=== PATIENT | female | born 1955 | race Caucasian/White ===

== ENCOUNTER 2016-10-06 16:44 | Inpatient (IN) | payer OTHER, MEDICAID ==
--- NOTE | 2016-10-06 17:16 | CPEKG ---
Heart Rate: 114 RR Interval: 526 P-R Interval: 136 QRSD Interval: 84 QT Interval: 316 QTC Interval: 436 P [place]: 51 QRS [place]: -39 T Wave [place]: 16 EKG Severity - ABNORMAL ECG - EKG Impression: SINUS TACHYCARDIA EKG Impression: VENTRICULAR PREMATURE COMPLEX EKG Impression: PROBABLE INFERIOR INFARCT, AGE INDETERMINATE Electronically Signed By: Yusef Busby 06-Oct-2016 22:06:16
[2016-10-06 17:34] LABS: % IMMATURE GRANULYOCYTES 0.4 % (0.0-1.1); ABSOLUTE IMMATURE GRANULOCYTES 0.04 10^3/uL (0.00-0.10); ADD DIFF? NO; ADD MORPH? NO; ADD SCAN? NO; ATYPICAL LYMPHOCYTE FLAG 10 (0-99); FRAGMENT RBC FLAG 0 (0-99); HEMATOCRIT 48.9 % (38.0-47.0); HEMOGLOBIN 15.8 g/dL (12.6-16.3); LEFT SHIFT FLG 0 (0-99); LIPEMIA HEMOLYSIS FLAG 80 (0-99); MEAN CELL HEMOGLOBIN 27.6 pg (27.9-34.1); MEAN CELL HEMOGLOBIN CONCENTR. 32.3 g/dL (32.4-36.7); MEAN CELL VOLUME 85.3 fL (81.5-99.8); MEAN PLATELET VOLUME 9.3 fL (8.7-11.7); PLATELET CLUMPS FLAG 20 (0-99); PLATELET COUNT 272 10^3/uL (150-400); RED BLOOD CELL COUNT 5.73 10^6/uL (4.18-5.33); RED CELL DISTRIBUTION WIDTH 16.5 % (11.5-15.2)
[2016-10-06 17:43] LABS: COLOR YELLOW; LEUKOCYTE ESTERASE,URINE 3+ (NEGATIVE); NITRITE,URINE POSITIVE (NEGATIVE)
--- NOTE | 2016-10-06 17:44 | EDPHY ---
H & P Time Seen by Provider: 10/06/16 16:48 HPI/ROS: Chief complaint. Fall HPI. 61-year-old female here by EMS after apparently having a fall at home today. She has been weak the last several days. Her son saw her yesterday and she seemed to be well. Patient has chronic back pain and has had lumbar surgery and has had incontinence for 6 weeks apparently. Maybe a little bit of cough earlier this week. Unknown fever. For friend found the patient on the floor today with a big bruise on the left anterior chest. Patient denies head injury or complaint of neck pain. She was unable to get up off the floor. She has had urosepsis. He is sleepy ROS Constitutional. Possible fever and generalized weakness Eyes. no problems with vision ENT. no sore throat, no nasal drainage Cardiovascular. no chest pain Respiratory. May be cough Abdominal. no abdominal pain, no nausea/vomiting, no diarrhea . no problems urinating MS. no calf pain/swelling, no neck/back pain, no joint pain Skin. Bruise left anterior chest Lymph. no swollen glands Neuro. Cannot walk or stand. Denies headache Past Medical/Surgical History: Past medical history chronic back pain, lumbar surgery for burst fracture, colitis, hypertension, room ARC toy arthritis, cholecystectomy, UTI sepsis, PE with filter and now filter removed., hypothyroid Social History: Lives alone, nonsmoker, no alcohol, single Smoking Status: Former smoker Physical Exam: General Appearance: Alert though somewhat lethargic well-developed female vital show temp 37.2degrees, heart rate 110, blood pressure initially 138/92 Eyes: Pupils equal and round no pallor or injection. ENT, Mouth: Mucous membranes are moist. Respiratory: There are no retractions, lungs are clear to auscultation. Cardiovascular: Regular rate and rhythm. Gastrointestinal: Abdomen is soft and nontender, no masses, bowel sounds normal. Neurological: Awake and alert, sensory and motor exams grossly normal. Skin: Large bruise to the left anterior chest Musculoskeletal: Neck is supple nontender. Extremities symmetrical, full range of motion. Psychiatric: Patient is oriented X 3, there is no agitation. Constitutional: Initial Vital Signs Temperature (C) 37.2 C 10/06/16 17:17 Heart Rate 110 H 10/06/16 17:17 Respiratory Rate 24 H 10/06/16 17:17 Blood Pressure 138/92 H 10/06/16 17:17 O2 Sat (%) 98 10/06/16 17:17 O2 Delivery Mode Nasal Cannula O2 (L/minute) 3 Allergies/Adverse Reactions: Tetracyclines Allergy (Verified 12/11/15 11:00) Rash Home Medications: Medication Instructions Recorded Cholecalciferol Vit D3 [Vitamin D3 2,000 units PO DAILY 05/05/15 (*)] [place]-3 Ethyl Est-Lovaza [Lovaza 1 2 gm PO BID 05/07/15 gm (*)] Lipase/Protease/Amylase [Creon 24 3 cap PO AC 01/02/16 (*)] Teriparatide [Forteo] 20 mcg SQ DAILY@18 01/02/16 Sennosides [Senna] 8.6 mg PO BID PRN 01/11/16 Melatonin [Melatonin 3 MG (*)] 3 mg PO HS 01/17/16 Acetaminophen [Tylenol 325mg (*)] 650 mg PO Q4 PRN #0 tab 01/21/16 Furosemide [Lasix 20 MG (*)] 20 mg PO DAILY PRN #30 tab 01/27/16 Gabapentin [Neurontin 300 MG (*)] 600 mg PO TID #90 cap 01/27/16 Hydrocortisone [Cortef 10 mg (*)] 10 mg PO DAILY16 #30 tab 01/27/16 Hydrocortisone [Cortef 10 mg (*)] 15 mg PO DAILY #30 tab 01/27/16 Polyethylene Glycol 3350 [Miralax 17 gm PO DAILY #0 pkt 01/27/16 17 gm (*)] Vancomycin [Vancocin Oral Liquid] 125 mg PO BID #35 ml 01/27/16 fentaNYL [Duragesic 25 MCG Patch 25 mcg TD Q48H #15 patch 01/27/16 (*)] oxyCODONE IR [Oxycodone Ir (*)] 5 mg PO Q6H PRN #120 tab 01/28/16 Medical Decision Making - Diagnostics EKG Interpretation: EKG interpreted by me shows sinus tachycardia with normal interval. There is left axis deviation. Possible inferior ME. No significant ST elevation or depression. The rate is 114 Imaging: A chest x-ray and interpreted by me shows congestive heart failure and bibasilar atelectasis. Procedures: IV normal saline. Sepsis workup ED Course/Re-evaluation: Re-evaluation at 6:30 p.m.. Blood pressure 127/70. Heart rate was 103. She has had 2 L of fluid resuscitation. She is given Rocephin intravenously. Patient has an elevated troponin. Patient, son, and I discussed imaging lab EKG results. We discussed treatment plan including need for admission. They expressed understanding and agreement I have consulted and discussed the case with Dr. Cook, hospitalist who agrees to the admission Differential Diagnosis: I considered sepsis, pneumonia, urinary sepsis, rhabdomyolysis, pneumothorax, rib fracture, acute coronary syndrome - Data Points Laboratory Results: Laboratory Results 10/06/16 17:00 10/06/16 17:00 10/06/16 10/06/16 17:15 17:00 WBC 8.95 10^3/uL (3.80-9.50) RBC 5.73 H 10^6/uL (4.18-5.33) Hgb 15.8 g/dL (12.6-16.3) Hct 48.9 H % (38.0-47.0) MCV 85.3 fL (81.5-99.8) MCH 27.6 L pg (27.9-34.1) MCHC 32.3 L g/dL (32.4-36.7) RDW 16.5 H % (11.5-15.2) Plt Count 272 10^3/uL (150-400) MPV 9.3 fL (8.7-11.7) Neut % (Auto) 74.1 % (39.3-74.2) Lymph % (Auto) 11.1 L % (15.0-45.0) [facility] % (Auto) 13.9 H % (4.5-13.0) Eos % (Auto) 0.1 L % (0.6-7.6) Baso % (Auto) 0.4 % (0.3-1.7) Nucleat RBC Rel Count 0.0 % (0.0-0.2) Absolute Neuts (auto) 6.63 H 10^3/uL (1.70-6.50) Absolute Lymphs (auto) 0.99 L 10^3/uL (1.00-3.00) Absolute Monos (auto) 1.24 H 10^3/uL (0.30-0.80) Absolute Eos (auto) 0.01 L 10^3/uL (0.03-0.40) Absolute Basos (auto) 0.04 10^3/uL (0.02-0.10) Absolute Nucleated RBC 0.00 10^3/uL (0-0.01) Immature Gran % 0.4 % (0.0-1.1) Immature Gran # 0.04 10^3/uL (0.00-0.10) PT 12.4 SEC (12.0-15.0) INR 0.93 (0.83-1.16) APTT 25.2 SEC (23.0-38.0) VBG Lactic Acid 1.5 mmol/L (0.7-2.1) Sodium 140 mEq/L (134-144) Potassium 3.7 mEq/L (3.5-5.2) Chloride 100 mEq/L (97-110) Carbon Dioxide 27 mEq/l (22-31) Anion Gap 13 mEq/L (8-16) BUN 15 mg/dL (7-23) Creatinine 0.8 mg/dL (0.6-1.0) Estimated GFR > 60 Glucose 92 mg/dL (70-100) Calcium 8.8 mg/dL (8.5-10.4) Total Bilirubin 0.8 mg/dL (0.1-1.4) Conjugated Bilirubin 0.3 mg/dL (0.0-0.5) Unconjugated Bilirubin 0.6 mg/dL (0.0-1.1) AST 48 H IU/L (14-46) ALT 41 IU/L (9-52) Alkaline Phosphatase 252 H IU/L (38-126) Creatine Kinase 618 H IU/L (0-156) CK-MB (CK-2) Fraction 11.10 H ng/mL (0-3.19) CK-MB (CK-2) % 1.8 % (0.0-4.0) Creatine Kinase Interp NEGATIVE (NEGATIVE) Troponin I 0.094 H ng/mL (0-0.034) NT-Pro-B Natriuret Pep 2010 H pg/mL (0-125) Total Protein 7.2 g/dL (6.3-8.2) Albumin 3.7 g/dL (3.5-5.0) Urine Color YELLOW Urine Appearance MODERATELY TURBID Urine pH 6.0 (5.0-7.5) Ur Specific [place] 1.013 (1.002-1.030) Urine Protein 2+ H (NEGATIVE) Urine Ketones NEGATIVE (NEGATIVE) Urine Blood 2+ H (NEGATIVE) Urine Nitrate POSITIVE H (NEGATIVE) Urine Bilirubin NEGATIVE (NEGATIVE) Urine Urobilinogen NEGATIVE EU (0.2-1.0) Ur Leukocyte Esterase 3+ H (NEGATIVE) Urine RBC 10-15 H /hpf (0-3) Urine WBC 50-182 H /hpf (0-3) Ur Epithelial Cells TRACE /lpf (NONE-1+) Urine Bacteria TRACE H /hpf (NONE SEEN) Hyaline Casts 1-5 /lpf (0-1) Urine Mucus TRACE /lpf (NONE-1+) Urine Glucose NEGATIVE (NEGATIVE) Medications Given: Discontinued Medications Sodium Chloride (Ns) 1,000 mls @ 0 mls/hr IV ONCE ONE PRN Reason: Wide Open Stop: 10/06/16 17:55 Last Admin: 10/06/16 17:54 Dose: 1,000 mls Departure - Departure Disposition: [facility] Inpatient Acute Clinical Impression: Elevated troponin Urinary tract infection Qualifiers: Urinary tract infection type: acute cystitis Hematuria presence: without hematuria Qualifier Code: (N30.00) Acute cystitis without hematuria Condition: Fair Referrals: Edmar Ling MD [Primary Care Provider] - As per Instructions
[2016-10-06 17:54] LABS: ANION GAP 13 mEq/L (8-16); BILIRUBIN,TOTAL 0.8 mg/dL (0.1-1.4); CALCIUM 8.8 mg/dL (8.5-10.4); CARBON DIOXIDE 27 mEq/l (22-31); CHLORIDE 100 mEq/L (97-110); CREATININE 0.8 mg/dL (0.6-1.0); GLOMERULAR FILTRATION RATE > 60; GLUCOSE 92 mg/dL (70-100); POTASSIUM 3.7 mEq/L (3.5-5.2); SODIUM 140 mEq/L (134-144)
[2016-10-06] MEDS ORDERED: NS 1,000 ML IV ONE ×2 (17:54→20:14)
[2016-10-06 17:58] LABS: ALANINE AMINOTRANSFERASE 41 IU/L (9-52); ALBUMIN 3.7 g/dL (3.5-5.0); ALKALINE PHOSPHATASE 252 IU/L (38-126); ASPARTATE AMINOTRANSFERASE 48 IU/L (14-46); BILIRUBIN,TOTAL 0.9 mg/dL (0.1-1.4); BILIRUBIN-CONJUGATED 0.3 mg/dL (0.0-0.5); BILIRUBIN-UNCONJUGATED 0.6 mg/dL (0.0-1.1); TOTAL PROTEIN 7.2 g/dL (6.3-8.2)
[2016-10-06 18:01] LABS: BACTERIA TRACE /hpf (NONE SEEN); MUCUS TRACE /lpf (NONE-1+); WBC,URINE 50-182 /hpf (0-3)
[2016-10-06 18:06] LABS: INR 0.93 (0.83-1.16); PROTIME(PATIENT) 12.4 SEC (12.0-15.0)
[2016-10-06 18:07] LABS: APTT 25.2 SEC (23.0-38.0)
[2016-10-06 18:10] LABS: TROPONIN I 0.094 ng/mL (0-0.034)
--- NOTE | 2016-10-06 18:25 | DX ---
AP Semiupright Portable Film October 06, 2016 Indication: Chest pain. Comparison: January 17, 2016. Findings: The heart size remains enlarged. Mild interstitial indistinctness remains. The PIC line has been removed. Questionable retrocardiac atelectatic changes are present. The patient is slightl y rotated. Impressions 1. Query low-grade or chronic congestive heart failure. 2. Questionable bibasilar atelectatic changes. Results relayed by Dr. Marlow to Dr. Lewsi on October 06, 2016 at 1820 hours.
[2016-10-06 18:48] LABS: CK-MB INTERPRETATION NEGATIVE (NEGATIVE)
[2016-10-06] MEDS ORDERED: ONDANSETRON 4 MG/2 ML VIAL IVP PRN (20:14)
[2016-10-06] MEDS ORDERED: ACETAMINOPHEN 325 MG TAB PO PRN (20:14)
[2016-10-06] MEDS ORDERED: ONDANSETRON DISINTEGRATING 4 MG TAB PO PRN (20:14)
[2016-10-06] MEDS ORDERED: oxyCODONE IR 5 MG TAB PO PRN (20:19)
[2016-10-06] MEDS ORDERED: ALTEPLASE 2 MG VIAL IVP PRN (20:23)
[2016-10-06] MEDS ORDERED: IPRATROPIUM/ALBUTEROL 3 ML DEYVIAL IH PRN (20:31)
--- NOTE | 2016-10-06 21:15 | GHP ---
[f rep st] HISTORY AND PHYSICAL DATE OF ADMISSION: 10/06/2016 CHIEF COMPLAINT: Found down. HISTORY OF PRESENT ILLNESS: A 61-year-old, very medically complicated female, who was found down by a care provider in the home today. Patient was brought to the emergency department for evaluation. The patient reports being quite weak over the course of the last couple days. She is essentially maryann i-independent, completing her ADLs, food preparation, minor cleanup and laundry, has noted that she h as been more sluggish. In the preceding 48 hours, had a friend visiting who had an upper respiratory infection. Patient developed cough over the course of the last 24 hours. The patient was weak enou gh that she fell, although she does not recall the details of the fall and has a bruise on her left a nterior chest, was not able to get up off the floor and care providers found her and brought her in. Patient denies active chest pain. On my evaluation, denies abdominal discomfort or nausea. She tirado s report a cough and some shortness of breath. Denies any headache. Does feel very fatigued. Denie s any focal numbness or weakness. PAST MEDICAL HISTORY: 1. History of enterococcal epidural abscess and paraspinous abscess, status post hardware removal an d replacement in December of 2015. 2. History of Clostridium difficile colitis. 3. History of E coli urinary tract infection. 4. Adrenal insufficiency. 5. History of pulmonary embolism. Replacement of IVC filter and retrieval of that filter. 6. Chronic pain with continuous narcotic dependency. 7. Hypertension. 8. Rheumatoid arthritis. 9. Normocytic anemia. 10. Obesity. 11. History of lymphocytic colitis with pancreatic insufficiency. SOCIAL HISTORY: Negative for tobacco, alcohol, or illicit drugs. FAMILY HISTORY: Negative for heart disease. ADVANCED DIRECTIVES: Patient is full cor, full tube. She has a friend who is the determined MD MONTENEGRO. REVIEW OF SYSTEMS: A 10-point review of systems is negative with the exception of that reported in t he HPI. PHYSICAL EXAMINATION: VITAL SIGNS: Blood pressure is 110/69, heart rate is 110; baselines are in th e 60s to 70s, respiratory rate 20, satting 97% on 3 L. Afebrile at 37.2. GENERAL: This is a very l ethargic-appearing chronically ill female. HEENT: Notable for very dry mucous membranes. Eye exam is negative for any icterus. CARDIAC: The patient is tachycardic. PULMONARY: She has rhonchorous wet sounds diffusely anteriorly and is coughing a lot during my examination. GASTROINTESTINAL: Posi tive bowel sounds. Mild tenderness to palpation in her bilateral lower quadrants. MUSCULOSKELETAL: Negative for lower extremity edema. SKIN: No obvious rashes. NEUROLOGIC: She appears somnolent, but answering questions. DIAGNOSTIC STUDIES: Chest x-ray, which I personally reviewed and interpreted, shows some mild inters titial markings bilaterally. Radiology questions retrocardiac atelectasis. LABORATORY DATA: White count 8.9, hematocrit 48.9 which is above her recent baselines. Platelet cou nt of 272. Creatinine is 0.8. Mild elevation in her CK. Troponin is 0.094. Urinalysis shows 50-18 2 white blood cells, positive nitrites, leukocyte esterase and blood. ASSESSMENT AND PLAN: This is a 61-year-old complicated medical female presenting found down. 1. Acute suspected community-acquired pneumonia. The patient appears toxic on visual examination, h as a rhonchorous lung exam and wet cough throughout my examination, is requiring more than baseline o xygen, and is tachycardic. We will initiate community-acquired antibiotics with ceftriaxone and azit hromycin. Blood cultures have been ordered from the emergency department. Can certainly narrow anti biotic coverage as results return. We will continue pulmonary support. 2. Abnormal urinalysis. Patient is not specifically endorsing dysuria, although has a history of ur inary tract infections with Escherichia coli and Citrobacter in the past. On the above regimen for s uspected community-acquired pneumonia, patient will receive ceftriaxone. Again, urine cultures have been sent and antibiotics can be withdrawn as cultures returned negative. 3. Adrenal insufficiency. The patient's sodium as well as blood pressures are normal. We will cont inue her home dosing of hydrocortisone at this time. Follow her labs and vitals closely. 4. Tachycardia, appears sinus on telemetry, suspect this is likely hypovolemia related to either madelyn pected pneumonia or underlying urinary tract infection. We will fluid resuscitate, initiate empiric antibiotics, and follow. 5. Chronic pain with continuous narcotic dependency. We will continue patient's home regimen as arsh g she is mentating clearly. 6. History of Clostridium difficile colitis. We will monitor the patient closely. Would consider e mpiric oral vancomycin if she develops loose stools. 7. History of enterococcal spine infection and abscess. Patient has been improving slowly since her last surgical intervention. I have ordered PT/OT for evaluation. 8. Patient is quite complicated from an infectious disease standpoint, would have a low threshold to involve ID in the morning. 9. Prophylaxis with Lovenox. DIET: Regular. DISPOSITION: I expect greater than 2 midnights as the patient is appearing quite toxic on evaluation and will need more diagnostic workup and treatment for stabilization. Discussed case with the emergency room physician. Patient will be triaged to the [facility] for care. /[id number]/MODL
[2016-10-06] MEDS: fentaNYL 25 MCG PATCH TD SCH (22:54)
[2016-10-07] MEDS: GABAPENTIN 300 MG CAP PO SCH ×2 (00:10→02:49)
[2016-10-07] MEDS: VANCOMYCIN 125 MG/2.5 ML UDL PO SCH ×2 (00:10→08:01)
[2016-10-07] MEDS: AZITHROMYCIN IV 500 MG in D5W 250 ML IV SCH ×3 (00:10→21:35)
--- NOTE | 2016-10-07 00:23 | HOSPPROG ---
Hospitalist Progress Note Assessment/Plan: 61 yo F w sepsis 1. sepsis: source likely urine vs pneumonia review of records show no resistant gm neg rods conbtinue ceftriaxone azithro repeat lactate and cxr given rising 02 requirements stress dose steroids transfer to step down 35 minutes critical care time Subjective: ctsp for oincreasing 02 requirement and fever. cxr w b/l airspace disease Objective: Vital Signs Temp Pulse Resp BP Pulse Ox 39.4 C H 121 H 22 H 185/108 H 85 L 10/06/16 22:45 10/06/16 22:45 10/06/16 22:45 10/06/16 22:45 10/06/16 22:45 10/05/16 10/06/16 10/07/16 05:59 05:59 05:59 Intake Total 1999 Balance 1999 PT 12.4 SEC (12.0-15.0) 10/06/16 17:00 INR 0.93 (0.83-1.16) 10/06/16 17:00 - Physical Exam Constitutional: No no apparent distress Eyes: PERRL Ears, Nose, Mouth, Throat: moist mucous membranes Cardiovascular: regular rate and rhythym, tachycardia Respiratory: other (upper airway ), No no respiratory distress, No no rales or rhonchi Gastrointestinal: normoactive bowel sounds, soft, non-tender abdomen Genitourinary: No holcomb in urethra Skin: warm, normal color Musculoskeletal: full muscle strength Neurologic: AAOx3 Psychiatric: interacting appropriately Lymph, Heme, Immunologic: no cervical LAD ICD10 Worksheet Patient Problems: Problems Problem Status Diagnosed Elevated troponin Acute Hypotension Acute Tachycardia Acute Urinary tract infection Acute C. difficile diarrhea Acute 11/02/15 Sepsis Acute VRE (vancomycin-resistant Enterococci) Acute 05/05/15
[2016-10-07] MEDS: HYDROCORTISONE 100 MG/2 ML VIAL IVP SCH ×4 (00:58→21:32)
[2016-10-07] MEDS ORDERED: ONDANSETRON 4 MG/2 ML VIAL ONE (01:43)
[2016-10-07] MEDS ORDERED: ONDANSETRON 4 MG/2 ML VIAL IVP ONE (01:49)
[2016-10-07 01:55] LABS: BASE EXCESS -3.4 mEq/L (-2.5-2.5); BICARBONATE 20 mEq/L (22-26); MEASURED OXYGEN SATURATION 95 % (92-95); PCO2 31 mmHg (34-38); PO2 80 mmHg (65-75); TCO2 21 mEq/L (23-27)
[2016-10-07] MEDS ORDERED: FUROSEMIDE 20 MG/2 ML VIAL IVP ONE (01:59)
[2016-10-07] MEDS ORDERED: ACETAMINOPHEN 500 MG TAB ONE (02:35)
[2016-10-07] MEDS ORDERED: ACETAMINOPHEN 325 MG SUPP PR ONE (02:41)
[2016-10-07] MEDS ORDERED: ACETAMINOPHEN 650 MG SUPP PR ONE (02:41)
[2016-10-07] MEDS ORDERED: ACETAMINOPHEN 120 MG SUPP PR ONE (02:53)
[2016-10-07] MEDS ORDERED: IPRATROPIUM/ALBUTEROL 3 ML DEYVIAL IH ONE (04:00)
[2016-10-07 06:30] LABS: % IMMATURE GRANULYOCYTES 0.5 % (0.0-1.1); ABSOLUTE IMMATURE GRANULOCYTES 0.06 10^3/uL (0.00-0.10); ADD DIFF? NO; ADD MORPH? NO; ADD SCAN? NO; ATYPICAL LYMPHOCYTE FLAG 0 (0-99); FRAGMENT RBC FLAG 0 (0-99); HEMATOCRIT 42.7 % (38.0-47.0); HEMOGLOBIN 13.8 g/dL (12.6-16.3); LEFT SHIFT FLG 40 (0-99); LIPEMIA HEMOLYSIS FLAG 80 (0-99); MEAN CELL HEMOGLOBIN 27.8 pg (27.9-34.1); MEAN CELL HEMOGLOBIN CONCENTR. 32.3 g/dL (32.4-36.7); MEAN CELL VOLUME 86.1 fL (81.5-99.8); MEAN PLATELET VOLUME 9.2 fL (8.7-11.7); PLATELET CLUMPS FLAG 0 (0-99); PLATELET COUNT 218 10^3/uL (150-400); RED BLOOD CELL COUNT 4.96 10^6/uL (4.18-5.33); RED CELL DISTRIBUTION WIDTH 16.6 % (11.5-15.2)
[2016-10-07 06:31] LABS: ANION GAP 11 mEq/L (8-16); CALCIUM 8.3 mg/dL (8.5-10.4); CARBON DIOXIDE 23 mEq/l (22-31); CHLORIDE 107 mEq/L (97-110); CREATININE 0.8 mg/dL (0.6-1.0); GLOMERULAR FILTRATION RATE > 60; GLUCOSE 112 mg/dL (70-100); POTASSIUM 3.5 mEq/L (3.5-5.2); SODIUM 141 mEq/L (134-144)
[2016-10-07] MEDS ORDERED: OSELTAMIVIR 6 MG/ML UDSYR PO SCH (08:00)
[2016-10-07] MEDS: CHOLECALCIFEROL VIT D3 2,000 UNITS TAB/CAP PO SCH (08:03)
[2016-10-07] MEDS: ENOXAPARIN 40 MG/0.4 ML SYR SC SCH (08:03)
[2016-10-07] MEDS: NS 1,000 ML IV SCH (08:07)
[2016-10-07] MEDS ORDERED: HYDROCORTISONE 10 MG TAB PO SCH ×2 (09:00→16:00)
[2016-10-07] MEDS ORDERED: GABAPENTIN 300 MG CAP PO SCH ×2 (09:00→16:00)
--- NOTE | 2016-10-07 09:24 | DX ---
Portable chest x-ray 0030 hours. History: Increasing oxygen requirements. Findings: Comparison to October 06, 2016. Heart size remains borderline enlarged. Pulmonary vasculature is mildly prominent centrally similar t o the prior study. Mild peribronchial cuffing is noted in the perihilar region as well some mild incr ease in perihilar interstitial markings increased since the prior study. Mild prominent interstitial markings are present at the lung bases left side more than right that could represent some dependent edema. There are no significant effusions. Osseous structures are unchanged. Impression: 1. Mild increase in peribronchial cuffing as well as prominence of perihilar interstitial markings an d bibasilar interstitial disease. Findings could be related to mild increase in the CHF/fluid overloa d pattern. Pneumonia is felt to be less likely.
[2016-10-07] MEDS: BUDESONIDE 3 MG EC CAP PO SCH (09:33)
[2016-10-07] MEDS: CREON 24 CAP PO SCH ×2 (09:36→10:42)
[2016-10-07] MEDS ORDERED: LIDOCAINE 1% 30 ML SDV MISC ONE (09:45)
[2016-10-07] MEDS ORDERED: LIDOCAINE 2% JELLY 5 ML TUBE TP ONE (09:45)
--- NOTE | 2016-10-07 10:26 | GCON ---
[f rep st] CONSULTATION INFECTIOUS DISEASE CONSULTATION. PHYSICIAN REQUESTING CONSULT: Kelly Cook. REASON FOR CONSULTATION: Influenza and pneumonia. HISTORY OF PRESENT ILLNESS: A 61-year-old woman with longstanding rheumatoid arthritis with PAS immunosuppression and steroid therapy, who is well known to me with a past history of enterococcal deep spinal paraspinal abscess and epidural abscess with associated hardware status post surgical and prolonged IV antibiotic therapy, completing therapy in spring. See details in past medical history. The patient presents after she was found down by her primary caregivers at approximately 3:00 p.m. on October 06, 2016. Over the last 2 days , the patient had been feeling malaise, cough, hoarse voice, but had not noticed a fever. Patient does not remember syncopal episode or tripping. No rash. She does have a sick contact with 1 of her caregivers recently having flu -like illness. The patient did receive her influenza vaccination on 06/24/2016. PAST MEDICAL HISTORY: 1. 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 The patient subsequently underwent definitive surgical management for this problem after suppressive therapy on January 02, 2016. Patient received perioperative antibiotics and for a couple of weeks afterwards, but then was discontinued when surgical cultures were negative. 2. Recurrent UTIs. Most recently, also in December of 2015 following her surgical intervention. 3. C. diff. last positive in 10/2015. The patient was on suppressive therapy during antibiotic therapy for other infectious problems. 4. Adrenal insufficiency identified in December of 2015. 5. History of pulmonary embolism with subsequent placement of IVC filter and subsequent retrieval. 6. Chronic pain with narcotic dependency. 7. Hypertension. 8. Rheumatoid arthritis. 9. Normocytic anemia. 10. Obesity. 11. Lymphocytic colitis with pancreatic insufficiency. PAST SURGICAL HISTORY: Gallbladder removal and surgical procedures associated with her multiple back surgeries including spinal fusion and most recently L3- L5 exploration removal of prior fusion and L5-S1 TLIF and L3-S1 PSF on 2015. SOCIAL HISTORY: The patient is independent, but she does have 2 friends/ caregivers who check on her regularly which is no change from her baseline. She does not use tobacco, alcohol or illicit drugs. FAMILY HISTORY: Positive for breast cancer, heart disease, hypertension, and skin cancer. ALLERGIES: To Bactrim which causes a rash and tetracycline. REVIEW OF SYSTEMS: A complete 10-point review of systems was performed and is negative except as mentioned in the HPI or below. GI: Patient did have a large bowel movement associated when she was found down. HOSPITAL COURSE: Overnight, the patient had increasing O2 requirements, and was transferred to step-down unit. Chest x-ray showed complete atelectasis of the left hemithorax this a.m. The patient also is on maximum O2 supplementation via nasal cannula. PHYSICAL EXAM: VITAL SIGNS: Blood pressure 106/63, heart rate 113, respiratory rate 32, saturation 96% on high-flow humidified 100%. GENERAL: This is a toxic-appearing woman in respiratory distress, who is slightly delirious and unable to answer all questions appropriately but is generally responding to most questions appropriately. HEENT: Pupils are reactive bilaterally. OROPHARYNX: Dry mucous membranes with crusting in the perioral area. NECK: Supple. CARDIOVASCULAR: Tachycardic, regular rate. CHEST: Decreased breath sounds throughout the left hemithorax. Coarse breath sounds on the right. ABDOMEN: Soft, nontender, obese. EXTREMITIES: No edema. She had good dorsalis pedis pulses, and her feet were warm with good perfusion. NEUROLOGICALLY: She is following all commands. She was able to state 2016, but said it was May. She stated president was Obama, but earlier accurately stated Imelda. LABS: White count 12.6, hematocrit 42, platelets of 218, 91% neutrophils, creatinine 0.8. LFTs: AST 48, ALT 41, alkaline phosphatase 252, CK 618. Troponin was slightly elevated at 0.1 with a BNP of 2000. Influenza PCR was positive. Chest x-ray, as per HPI, with complete opacification of the left hemithorax with shifting of the trachea to the left. Personally reviewed by me. Blood cultures were collected and are pending. ASSESSMENT AND PLAN: This is a 61-year-old woman well known to me with multiple prior infectious disease issues including an enterococcal spine infection, now resolved, Clostridium difficile, now resolved and recurrent urinary tract infections, who presents with sepsis with severe hypoxia after being found down by her friend/caregivers. Subsequently, patient was identified to have influenza and had respiratory decompensation while hospitalized, and was found to have a complete atelectasis of the left hemithorax. Suspect influenza with potential superimposed bacterial pneumonia. Primary organism of concern is pneumococcus. ASSESSMENT 1. Sepsis secondary to influenza and CAP RECOMMENDATIONS: 1. ICU monitoring.Likely will be intubated, discussed with the patient and her friend/caregiver at bedside. 2. Continue Tamiflu, ceftriaxone and azithromycin for now, and await further microbiologic data. 3. Send resp cultures with bronchoscopy TIME: 65 minutes. Greater than 50% time spent with education, counseling and coordination of care with critical care, Dr Seth and review of records. /[id number]/MODL MTDD
--- NOTE | 2016-10-07 10:47 | DX ---
Portable AP Semiupright Chest, Two Views October 07, 2016 7:44 a.m. Clinical History: 61-year-old female positive for flu, presenting for follow up evaluation of respira tory status. Comparison Study: Chest from earlier this morning at 12:30 a.m. Findings: The patient is rotated to the left. Oxygen tubing and telemetry monitoring lead lines are p resent. In the interim, there has been development of dense pleuroparenchymal consolidation involving the lower two third's portion of the left hemithorax. Mild diffuse peribronchial thickening is seen bilaterally. There is some mild right basilar subsegmental atelectasis. Old healed bilateral rib defo rmities are seen. Impression: Peribronchial thickening consistent with the patient's history of flu, with interim devel opment of pleuroparenchymal consolidation involving much of the left hemithorax. A left lateral decub itus view could be considered to assess for free-flowing pleural fluid.
[2016-10-07] MEDS ORDERED: fentaNYL 100 MCG/2 ML INJ IVP ONE ×2 (11:30→12:26)
[2016-10-07] MEDS ORDERED: MIDAZOLAM 2 MG/2 ML VIAL IVP ONE ×2 (11:30→12:26)
[2016-10-07] MEDS ORDERED: ACETAMINOPHEN 325 MG TAB TUBE PRN (11:33)
[2016-10-07] MEDS ORDERED: MIDAZOLAM 2 MG/2 ML VIAL ONE ×2 (11:33→11:36)
--- NOTE | 2016-10-07 11:34 | HOSPPROG ---
Hospitalist Progress Note Assessment/Plan: Acute hypoxemic respiratory failure secondary to Influenza complicated by PNA - requiring 40 LPM O2. CXR this am shows complete opacification of the left hemithorax. BCx's pending -bronchoscopy and intubation this am -Cont Tamiflu per OGT -Cont CAP PNA coverage with Ceftriaxone / Azithromycin -send sputum Cx, suspect pneumococcal PNA Sepsis secondary to PNA - Tx as above. -stress dose steroids, pt has h/o adrenal insufficiency Acute encephalopathy secondary to acute infection - monitor Adrenal insufficiency - stress dose HC for now, resume oral steroids when weaned off IV HC. Elevated troponin - relatively flat. Suspect strain in setting of pulmonary decompensation. She has not complained of CP. EKG non-ischemic. Chronic pain - On Fentanyl patch, plus IV Fentanyl for pain / sedation. H/O C diff - PO Vanc for prevention H/O enterococcal spinal abscess - stable Full code DVT PPLX - Lovenox Dispo - cont ICU Subjective: Pt is on high flow O2, not answering questions, but does not in agreement to intubation. Tmax 39.4 last night. Little oral intake. Objective: Vital Signs Temp Pulse Resp BP Pulse Ox 36.6 C 105 H 26 H 119/68 94 10/07/16 08:00 10/07/16 10:44 10/07/16 10:44 10/07/16 10:44 10/07/16 10:44 Laboratory Results 10/07/16 06:00 10/07/16 06:00 10/06/16 10/07/16 10/08/16 05:59 05:59 05:59 Intake Total 1999 3750 Output Total 300 Balance 1999 3450 PT 12.4 SEC (12.0-15.0) 10/06/16 17:00 INR 0.93 (0.83-1.16) 10/06/16 17:00 - Physical Exam Constitutional: chronically ill appearing Eyes: PERRL Ears, Nose, Mouth, Throat: dry mucous membranes Cardiovascular: tachycardia Respiratory: reduced air movement, inspiratory crackles, respiratory distress Gastrointestinal: normoactive bowel sounds, soft, non-tender abdomen Skin: warm Psychiatric: encephalopathic ICD10 Worksheet Patient Problems: Problems Problem Status Diagnosed Elevated troponin Acute Hypotension Acute Tachycardia Acute Urinary tract infection Acute C. difficile diarrhea Acute 11/02/15 Sepsis Acute VRE (vancomycin-resistant Enterococci) Acute 05/05/15
[2016-10-07] MEDS ORDERED: fentaNYL 100 MCG/2 ML INJ ONE (11:35)
[2016-10-07] MEDS: PROPOFOL/EMULSION 100 ML IV SCH ×2 (12:21→18:16)
[2016-10-07] MEDS: fentaNYL/NACL 100 ML IV SCH ×2 (12:22→18:16)
[2016-10-07 12:26] LABS: COLOR AMBER; LEUKOCYTE ESTERASE,URINE 3+ (NEGATIVE); NITRITE,URINE NEGATIVE (NEGATIVE)
[2016-10-07 12:37] LABS: BACTERIA TRACE /hpf (NONE SEEN); MUCUS TRACE /lpf (NONE-1+); RBC,URINE 25-50 /hpf (0-3); WBC,URINE 50-182 /hpf (0-3)
--- NOTE | 2016-10-07 13:07 | GPN ---
[f rep st] PROCEDURE NOTE DATE OF PROCEDURE: 10/07/2016 PROCEDURE: Intubation. REASON FOR INTUBATION: Acute respiratory failure associated with influenza A, pneumonia with superimposed probable bacterial pneumonia and atelectasis of the left lower lobe. DESCRIPTION OF PROCEDURE: The procedure was performed in the intensive care unit. Informed consent was obtained from the patient's medical power of suture gauger. Appropriate time-out was performed. Barrier masks were used. The fiberoptic bronchoscope was passed via a bite block orally into the larynx. The vocal cords were identified and appeared to move normally with respiration and cough. The bronchoscope was then advanced into the trachea. A 7.5 endotracheal tube was advanced over this and left approximately 2 cm above the main casie. The intubation was traumatic, with blood appearing in the airways as a result of the intubation. Not only was blood in the airways, but she had a large amount of relatively thin secretions. These appeared to be coming from both sides. However, visualization was somewhat difficult at this point. The bronchoscope was removed, and the patient was stabilized and placed on the ventilator. There were no complications. The lowest saturation was 85% towards the end of the intubation procedure. 4 mg of Versed and 100 mcg of fentanyl were used for conscious sedation for this procedure. Approximately 12 cc of 1% lidocaine was used for topical anesthesia. ASSESSMENT: Successful endotracheal intubation. /[id number]/MODL MTDD
--- NOTE | 2016-10-07 13:07 | GPN ---
[f rep st] PROCEDURE NOTE DATE OF PROCEDURE: 10/07/2016 PROCEDURE: Therapeutic bronchoscopy. INDICATION: Acute respiratory failure in a patient with Influenza a, pneumonia, and probable superim posed bacterial pneumonia with acute obstruction of the left lower lobe, presumably from mucus. DESCRIPTION OF PROCEDURE: The procedure was performed in the intensive care unit. Informed consent was obtained from the patient's medical power of assistant city attorney. Medications are as noted for the intubati on. The fiberoptic bronchoscope was passed via an adapter on the end of the patient's endotracheal tube a nd into the distal trachea and in the lower tracheobronchial tree bilaterally. All areas were observ ed to at least the segmental level. Anatomy appeared normal. There was residual blood in the airway s from traumatic intubation. There were relatively thin secretions found bilaterally. These were re moved with suction and lavage. Some of these secretions came from distal areas. Cultures were sent. There were no large mucus plugs on the left side or on the right. The patient tolerated the procedure well. Oxygen saturations and vital signs remained stable through out the procedure. ASSESSMENT: Copious, relatively thin secretions without obvious mucous plugging at the time that the bronchoscopy was performed. However, secretions were removed at the end of the patient's intubation when visualization was more difficult and obstructing secretions could have been removed at that rd e related to the left lower lobe. /[id number]/MODL
--- NOTE | 2016-10-07 13:47 | GCON ---
[f rep st] CONSULTATION PULMONARY CRITICAL CARE CONSULTATION. DATE OF CONSULTATION: 10/07/2016 REASON FOR CONSULTATION: Acute respiratory failure, influenza A, and bacterial pneumonia with left-s ided atelectasis. HISTORY: The patient is a 61-year-old woman, with multiple underlying medical problems. She was adm itted yesterday after being found down at home. She had not been feeling well for several days and h ad become quite weak. She did sustain a bruise to her left chest. Over the last several days she boykin s had increasing cough and increasing shortness of breath, associated with fatigue and generalized we akness. Her initial x-ray in the emergency department did not show a significant pneumonia. She did have inc reased markings, possibly consistent with influenza A pneumonitis, as she had a positive PCR for infl uenza A. Subsequent chest x-ray done about 7 hours later showed almost complete atelectasis of the l eft side. She is in the intensive care unit. She is on high-flow oxygen, and is somewhat lethargic. Blood pressure has been borderline at times. Respiratory rate is approximately 30. Her maximum te mperature is 39.4. I have discussed her case with Infectious Disease, Angela Mendoza MD. Bronch oscopy will be done and deep cultures obtained, and mucus plugs removed. Hopefully this will reestab aye aeration of the left side. She will need to be intubated for this procedure secondary to her hy poxemia, mental status, obesity, etc. 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 SOCIAL HISTORY: The patient lives by herself. She has a medical [id number]-[id number] and others that l ook after her. She does not smoke cigarettes, drink alcohol. FAMILY HISTORY: Unobtainable. REVIEW OF SYSTEMS: Unobtainable at this time. Negative except as reported above per the chart. The patient is a full core per her advance directives. PHYSICAL EXAMINATION: VITAL SIGNS: Reveals a woman on high-flow oxygen by Vapotherm. With this, sa turations are approximately 95%. Respiratory rate is 30. Blood pressure is approximately 100/60, he art rate 110 with sinus rhythm on the monitor. She is afebrile currently with a T-max over 39 degree s. GENERAL: She is arousable and responsive but somnolent. She is not coughing. HEENT: Unremarkab le for lymphadenopathy or thyromegaly. The Vapotherm devices in place. NECK: Is large in neck vein s are difficult to appreciate. CHEST: Reveals decreased breath sounds and air movement on the left s jemma, better movement on the right side with some central congestion and expiratory wheezes. HEART: H eart tones are distant. The rhythm is regular, tachycardic. ABDOMEN: Obese, soft, nontender. Orga nomegaly cannot be appreciated. EXTREMITIES: Remarkable for trace plus edema. There are no obvious cords, no tenderness obvious. SKIN: Without rash or significant lesions. NEUROLOGIC: Nonfocal. M ental status appears to be intact except for her somnolence. I do not know her baseline. DATABASE: Radiologic studies as noted above. Arterial blood gas shows a pH of 7.42, pCO2 31, and pO2 80 at 0145. She was on the Vapotherm at that time. Lactic acid was 1.8. White blood cell count is 12,600, hematocrit 42. Platelets are normal. PT and PTT were normal on admission. Basic metabolic panel was normal with exception of a low potassium at 3.5. Calcium is 8.3. AST is mildly elevated at 48. CK-MB was negative and troponins nonspecifical ly mildly high. BNP was 2000. Albumin 3.7. Urinalysis on admission showed significant white blood cells and urine bacteria, consistent with a ur inary tract infection. Influenza A was positive by PCR. ASSESSMENT: 1. Influenza A pneumonia/pneumonitis. 2. Possible superimposed bacterial pneumonia. She is being treated for this with azithromycin and c eftriaxone. She is on Tamiflu for influenza. 3. Atelectasis of the left side. Presumably this is all secondary to mucus plugging. Bronchoscopy is indicated to remove mucus plugs and reestablish aeration of the left side. She will need to be in tubated to accomplish bronchoscopy safely. I anticipate that she will be on the ventilator for 2-4 d ays, possibly longer. 4. History of multiple medical problems as outlined above. 5. History of adrenal insufficiency. Stress steroid coverage is indicated and has been initiated. 6. History of chronic pain. She will require narcotics during this hospitalization. For the presen t time of fentanyl per the ventilator sedation protocol will be adequate. Pain will be difficult to assess to some extent while she is on the ventilator. PLAN: The patient will be electively intubated and bronchoscopy performed. She will be managed appr opriately on the ventilator. Appropriate sedation and pain control will be maintained. Cultures maliha l be sent. Laboratory, blood gas, chest x-ray will all be followed. Tamiflu, ceftriaxone, and azith romycin will be continued. Neurontin can be continued. Enoxaparin will be used for DVT prophylaxis. PUD prophylaxis will be maintained while she is n.p.o. An NG tube will be placed for administratio n of oral medications. All the above was discussed with Infectious Disease, the hospitalist, nursing, and respiratory therap y. 55 minutes of critical care time was spent directly with the patient and did not include intubation a nd bronchoscopy. /[id number]/MODL
[2016-10-07 13:57] LABS: BASE EXCESS -5.1 mEq/L (-2.5-2.5); BICARBONATE 20 mEq/L (22-26); MEASURED OXYGEN SATURATION 97 % (92-95); PCO2 40 mmHg (34-38); PO2 112 mmHg (65-75); TCO2 21 mEq/L (23-27)
[2016-10-07 13:58] LABS: END TIDAL CO2 36; O2 CONCENTRATIION 100 % (0-100); P/F RATIO 112 RATIO; PRESSURE SUPPORT 7; SIMV YES
--- NOTE | 2016-10-07 14:45 | DX ---
AP chest x-ray supine 1248 hours. History: Followup intubation and PICC line placement. Findings: Comparison to exam performed earlier today at 0744 hours. PICC line is now seen from left arm approach with tip in the upper right atrium. ET tube tip is at th e casie. NG tube tip is below the GE junction. There is persistent atelectasis involving the lingula and left lower lobe with slightly improved aera tion of the left upper lobe. There are some bands of atelectasis suspected at the right lung base. Th e mid and upper lungs on the right appear relatively clear. There is no evidence of pneumothorax. Impression: 1. Persistent atelectasis left lower lobe and lingula with some improved aeration of the left upper l obe. Rule out mucous plug. 2. ET tube tip at the casie. This could be pulled back about 2 cm. 3. PICC line has been placed with tip in the upper right atrium. 4. NG tube tip below the GE junction. 5. Mild increase in subsegmental atelectasis right lung base.
--- NOTE | 2016-10-07 15:43 | DX ---
Supine abdomen 1332 hours. History: Check NG tube placement. Findings: NG tube is curved in the stomach with the tip directed toward the antrum. Hardware from low er lumbar spine fusion procedure is evident. Bowel gas pattern is unremarkable. Impression: 1. NG tube in good position with tip directed toward the antrum.
[2016-10-07] MEDS ORDERED: GABAPENTIN 250 MG/5 ML 30 ML BOTTLE TUBE SCH (16:00)
--- NOTE | 2016-10-07 17:49 | IR ---
Imaging Guided Peripherally Inserted Central Catheter History: Central line access for multiple medications. Prophylactic Antibiotic: Cefazolin was not ordered and administered for antimicrobial prophylaxis be cause it was not medically necessary for this procedure. VTE Prophylaxis: There is not an order for VTE prophylaxis to be given within 24 hours after procedu re end time because it was not medically necessary for this procedure. Crosscutting Measure: Patient's current list of medications including all known prescriptions, over- the-counters, herbals, and vitamin/mineral/dietary supplements are reviewed. Medications' name, dosa ge, frequency, and route of administration are confirmed. patient is a non-smoker. Technique: This procedure is performed at patient's bedside. No fluoroscopy was utilized. Following i nformed consent, the left arm was prepped and draped in sterile fashion. 1% Xylocaine was used for lo zelda anesthetic. All elements of maximal sterile barrier technique including cap, mask, sterile gown , sterile gloves, large sterile sheet, hand hygiene, and 2% chlorhexidine for cutaneous antisepsis, f ollowed. Ultrasound evaluation of potential access site was performed. After successfully identifying a patent vessel, ultrasound guidance was used to puncture the vein. A permanent recording was created for the patient's record. Ultrasound transducer was placed in sterile sleeve and used for real-time imaging guidance over steri le gel to enter the basilic vein. 0.018 measuring wire was passed centrally. A skin riki with scalpel blade was followed by removing the access needle. A 5 Greenlandic peel-away sheath was followed by a 5 F rench double-lumen central catheter, trimmed to 43 cm length. The tip of the catheter was positioned centrally and the guidewire removed. The hub of the catheter was fixed to the skin using a sterile S tatLock adhesive device, and a sterile dressing was applied. The catheter was irrigated. Fluoroscopy: 0 min Dose: 0 mGy Exposures: 0 images Impression: 5 Greenlandic double lumen peripherally inserted central catheter. Chest x-ray to follow to e valuate tip placement.
[2016-10-07] MEDS: OSELTAMIVIR 6 MG/ML UDSYR TUBE SCH (18:07)
[2016-10-07] MEDS: GABAPENTIN 250 MG/5 ML 30 ML BOTTLE TUBE SCH ×3 (18:07→21:34)
[2016-10-07] MEDS: Teriparatide [Forteo] 20 MCG SQ SCH (18:07)
[2016-10-07] MEDS: POTASSIUM Cl (KCl) 50 ML IV SCH (19:30)
[2016-10-07] MEDS: VANCOMYCIN 125 MG/2.5 ML UDL TUBE SCH (21:33)
[2016-10-08] MEDS: NS 1,000 ML IV SCH ×2 (00:31→21:11)
[2016-10-08 04:42] LABS: BASE EXCESS -3.4 mEq/L (-2.5-2.5); BICARBONATE 20 mEq/L (22-26); MEASURED OXYGEN SATURATION 98 % (92-95); PCO2 32 mmHg (34-38); PO2 128 mmHg (65-75); TCO2 21 mEq/L (23-27)
[2016-10-08 04:43] LABS: END TIDAL CO2 25; O2 CONCENTRATIION 60 % (0-100); P/F RATIO 213 RATIO; SIMV YES
[2016-10-08 04:44] LABS: PATIENT RATE 18; PRESSURE SUPPORT 7
[2016-10-08 05:20] LABS: % IMMATURE GRANULYOCYTES 1.1 % (0.0-1.1); ABSOLUTE IMMATURE GRANULOCYTES 0.13 10^3/uL (0.00-0.10); ADD DIFF? NO; ADD MORPH? NO; ATYPICAL LYMPHOCYTE FLAG 0 (0-99); FRAGMENT RBC FLAG 0 (0-99); LIPEMIA HEMOLYSIS FLAG 80 (0-99); MEAN CELL HEMOGLOBIN 27.7 pg (27.9-34.1); MEAN CELL HEMOGLOBIN CONCENTR. 32.4 g/dL (32.4-36.7); MEAN CELL VOLUME 85.5 fL (81.5-99.8); MEAN PLATELET VOLUME 9.4 fL (8.7-11.7); PLATELET CLUMPS FLAG 50 (0-99); PLATELET COUNT 181 10^3/uL (150-400); RED BLOOD CELL COUNT 4.33 10^6/uL (4.18-5.33); RED CELL DISTRIBUTION WIDTH 16.4 % (11.5-15.2)
[2016-10-08 05:25] LABS: ADD SCAN? NO; LEFT SHIFT FLG 99 (0-99)
[2016-10-08 05:40] LABS: ALANINE AMINOTRANSFERASE 38 IU/L (9-52); ALBUMIN 2.2 g/dL (3.5-5.0); ALKALINE PHOSPHATASE 116 IU/L (38-126); ANION GAP 6 mEq/L (8-16); ASPARTATE AMINOTRANSFERASE 41 IU/L (14-46); BILIRUBIN,TOTAL 0.4 mg/dL (0.1-1.4); CALCIUM 8.2 mg/dL (8.5-10.4); CARBON DIOXIDE 23 mEq/l (22-31); CHLORIDE 111 mEq/L (97-110); CREATININE 0.7 mg/dL (0.6-1.0); GLOMERULAR FILTRATION RATE > 60; GLUCOSE 104 mg/dL (70-100); POTASSIUM 3.7 mEq/L (3.5-5.2); SODIUM 140 mEq/L (134-144); TOTAL PROTEIN 4.4 g/dL (6.3-8.2)
[2016-10-08] MEDS: ENOXAPARIN 40 MG/0.4 ML SYR SC SCH (08:26)
[2016-10-08] MEDS: VANCOMYCIN 125 MG/2.5 ML UDL TUBE SCH ×2 (08:26→21:05)
[2016-10-08] MEDS: HYDROCORTISONE 100 MG/2 ML VIAL IVP SCH ×3 (08:26→21:03)
[2016-10-08] MEDS: OSELTAMIVIR 6 MG/ML UDSYR TUBE SCH ×2 (08:26→17:20)
--- NOTE | 2016-10-08 08:41 | PCMIDPN ---
Assessment/Plan: #Sepsis with Resp Failure due to Influenza/CAP. Generally improved today. O2 sat 100% on FiO2 50%. Further, chest x-ray today significantly improved with a small effusion in the left base. Pulmonary service to evaluate safety of extubation --continue ceftriaxone/azithromycin today. Continue to follow BAL culture # Gram-negative magali in urine: Patient is on ceftriaxone, no change. She did not have symptoms admission Microbiology 10/06 BAL: Mixed oral pharyngeal laz 10/06 Urine culture: 10 K Gram-negative magali 10/05 Blood cultures: 2 sets: No growth Medication Tamiflu 75 mg twice daily, #2 ceftriaxone 1 g IV daily, # 3 Azithromycin 500 mg IV daily, #3 Subjective: Patient was intubated yesterday afternoon. Today, Patient is awake on the ventilator acknowledging that she is comfortable. No specific events overnight Objective: Vital Signs Temp Pulse Resp BP Pulse Ox 36.7 C 69 18 125/72 H 100 10/08/16 08:00 10/08/16 08:00 10/08/16 08:00 10/08/16 08:00 10/08/16 08:00 Microbiology 10/07/16 12:21 - Final Sputum, Induced/Suctioned Laboratory Results 10/08/16 05:00 10/08/16 05:00 10/07/16 10/08/16 10/09/16 05:59 05:59 05:59 Intake Total 1999 6634.9 Output Total 2100 Balance 1999 4534.9 - Physical Exam General Appearance: alert, no apparent distress, obese EENT: pale conjunctiva, ET Tube, NG Tube, dry mucous membranes Respiratory: coarse breath sounds (On the left), other (Decreased breath sounds in the bases on the left) Neck: supple Cardiac/Chest: regular rate, rhythm Extremities: No pedal edema Abdomen: non-tender, soft Pelvic Exam: holcomb Skin: pallor, No rash Neuro/Psych: alert, other (Moving all 4 extremities spontaneously) - Line/s RUE PICC Lines: No drainage, No erythema ICD10 Worksheet Patient Problems: Problems Problem Status Diagnosed Elevated troponin Acute Hypotension Acute Tachycardia Acute Urinary tract infection Acute C. difficile diarrhea Acute 11/02/15 Sepsis Acute VRE (vancomycin-resistant Enterococci) Acute 05/05/15
[2016-10-08] MEDS: GABAPENTIN 250 MG/5 ML 30 ML BOTTLE TUBE SCH ×3 (09:15→21:04)
--- NOTE | 2016-10-08 09:27 | DX ---
Portable Semiupright Chest October 08, 2016, 0910 Hours Clinical Indication: Follow up pneumonia. Comparison: October 07, 2016. Findings: Left-sided PIC line terminates at the SVC/right atrial junction. Tip of the endotracheal tu be is 2 cm above the casie slightly improved from prior examination. Nasogastric tube terminates off the edge of the film. The right lung appears better aerated than prior examination. Persistent basil ar atelectatic change or consolidation is present on the right. Old rib fractures noted. Impressions 1. Lines and tubes in stable position. 2. Improved aeration of the right lung. 3. Persistent left basilar consolidation or effusion.
[2016-10-08] MEDS ORDERED: PROTOCOL MAGNESIUM 1 DOSE IV PRN (10:37)
[2016-10-08] MEDS ORDERED: PROTOCOL POTASSIUM 1 DOSE MISC PRN (10:37)
[2016-10-08 12:43] LABS: BASE EXCESS -4.3 mEq/L (-2.5-2.5); BICARBONATE 20 mEq/L (22-26); MEASURED OXYGEN SATURATION 96 % (92-95); PCO2 36 mmHg (34-38); PO2 92 mmHg (65-75); TCO2 21 mEq/L (23-27)
[2016-10-08 12:44] LABS: CPAP YES; END TIDAL CO2 33; O2 CONCENTRATIION 40 % (0-100); P/F RATIO 230 RATIO; PATIENT RATE 15; PRESSURE SUPPORT 7
[2016-10-08] MEDS ORDERED: LIDOCAINE 2% JELLY 5 ML TUBE ONE (14:53)
[2016-10-08] MEDS ORDERED: LIDOCAINE 1% 30 ML SDV MISC ONE (15:05)
[2016-10-08] MEDS ORDERED: MIDAZOLAM 2 MG/2 ML VIAL ONE (15:18)
--- NOTE | 2016-10-08 15:55 | PDINTPN ---
Business Systems Developer Progress Note Assessment/Plan: Assessment: Acute respiratory failure . On the ventilator, improving. Weaning well with CPAP. If secretions acceptable she may be able to be extubated today. Atelectasis of left lung. Significantly improved. Presumably secondary to mucus plugging. Infiltrates do persist. For repeat bronchoscopy prior to possible extubation. Influenza a pneumonia with superimposed bacterial pneumonia, secretions. On Tamiflu, Rocephin and azithromycin. Id following. Obesity. History of chronic pain, narcotic use. UTI: Gram-negative magali coming in for in urine. Should be adequately covered on current antibiotics. DVT prophylaxis: On enoxaparin The GI prophylaxis: On famotidine. Plan: Bronchoscopy today. If secretions are acceptable then extubation will be considered. CPAP weaning gas and parameters look good. Follow x-ray, laboratory. Continue antibiotics and other current medications. Continue ICU care. Will need narcotic coverage post extubation prior to initiating her usual home regimen. 50 minutes of critical care time spent directly with the patient during this visit, not including bronchoscopy. Discussed with nursing, respiratory, hospitalist, and the ICU multi disciplinary team. Subjective: Intubated, sedated, arouses, indicates she wants the tube out Objective: Vital Signs Temp Pulse Resp BP Pulse Ox 36.5 C 59 L 16 146/87 H 99 10/08/16 15:00 10/08/16 15:00 10/08/16 15:00 10/08/16 15:00 10/08/16 15:00 Microbiology 10/07/16 12:21 - Final Sputum, Induced/Suctioned Laboratory Results 10/08/16 05:00 10/08/16 05:00 10/07/16 10/08/16 10/09/16 05:59 05:59 05:59 Intake Total 1999 6634.9 Output Total 2100 Balance 1999 4534.9 PT 12.4 SEC (12.0-15.0) 10/06/16 17:00 INR 0.93 (0.83-1.16) 10/06/16 17:00 Laboratory Tests 10/08/16 10/08/16 05:00 12:35 pCO2 36 pO2 92 H ABG pH 7.36 O2 Concentration % 40 Actual Respiration Rate 15 PEEP 5 Pressure Support 7 CPAP YES Calcium 8.2 L Total Bilirubin 0.4 D AST 41 ALT 38 Albumin 2.2 L CXR: Improved. Resolving atelectasis on the left. Retrocardiac infiltrates persist. Lines and tubes in good position Physical Exam - Physical Exam General Appearance: obese, other ( sedated, arouses) EENT: PERRL/EOMI, ET tube ( with decreased secretions) Neck: normal inspection (e neck) Respiratory: decreased breath sounds ( bilaterally. Breath sounds coarse.), rales, rhonchi ( Scattered rales, decreasing rhonchi), No wheezing Cardiac/Chest: regular rate, rhythm (, bradycardic at times) Abdomen: non-tender, soft ( obese), No normal bowel sounds ( present, decreased) Pelvic Exam: other Skin: normal color, warm/dry Extremities: pedal edema Neuro/Psych: no motor/sensory deficits ( moves all extremities equally), No cognition abnormalities ( hard to assess but appears normal, looks to voice, responsive) ICD10 Worksheet Patient Problems: Problems Problem Status Diagnosed Elevated troponin Acute Hypotension Acute Tachycardia Acute Urinary tract infection Acute C. difficile diarrhea Acute 11/02/15 Sepsis Acute VRE (vancomycin-resistant Enterococci) Acute 05/05/15
[2016-10-08] MEDS ORDERED: MIDAZOLAM 2 MG/2 ML VIAL IVP ONE (16:00)
--- NOTE | 2016-10-08 16:11 | GPN ---
[f rep st] PROCEDURE NOTE DATE OF PROCEDURE: 10/08/2016 PROCEDURE: Therapeutic bronchoscopy. INDICATION: Pneumonia, atelectasis, secretions in a patient on the ventilator with influenza A, as w ell as bacterial pneumonia. PROCEDURE IN DETAIL: The procedure was performed in the intensive care unit. Informed consent was o btained from the patient's power of trust and estates attorney. Appropriate time-out was performed. Appropriate masks were worn. The fiberoptic bronchoscope was passed via an adapter on the end of the patient's endotracheal tube a nd into the distal trachea and lower tracheobronchial tree bilaterally. There was minimal residual b lood from the traumatic intubation yesterday. Secretions were thicker and less in amount, modest at this point in time, left greater than right, somewhat purulent. Secretions were removed with suction and lavage. No cultures were obtained. Underlying anatomy was normal to the segmental level. Approximately 10 cc of 1% lidocaine was used for topical anesthesia and 2 mg of intravenous Versed we re given for conscious sedation on top of the propofol and fentanyl which were being used for ventila tory sedation/pain management. IMPRESSION: Significantly improved secretions, without evidence of persistent mucus plugging. PLAN: Based on these results, I anticipate the patient will be able to be extubated in an hour or so if she continues to do well on the ventilator. /[id number]/MODL
[2016-10-08] MEDS: Teriparatide [Forteo] 20 MCG SQ SCH (17:20)
--- NOTE | 2016-10-08 17:33 | HOSPPROG ---
Hospitalist Progress Note Assessment/Plan: DIAGNOSIS: Acute hypoxemic respiratory failure secondary to Influenza complicated by pneumococcal PNA - -bronchoscopy planned for this afternoon -Cont Tamiflu per OGT -Cont CAP PNA coverage with Ceftriaxone / Azithromycin Sepsis secondary to PNA - Tx as above. -stress dose steroids, pt has h/o adrenal insufficiency Acute encephalopathy secondary to acute infection - monitor Adrenal insufficiency - stress dose HC for now, resume oral steroids when weaned off IV HC. Chronic pain - On Fentanyl patch, plus IV Fentanyl for pain / sedation. H/O C diff - PO Vanc for prevention H/O enterococcal spinal abscess - stable Full code DVT PPLX - Lovenox Dispo - cont ICU I reviewed the patient's condition and care plan in detail with Dr. Omar Seth I have also seen the patient on multidisciplinary rounds today SUBJECTIVE: Patient sedated on ventilator no symptom evaluation available No acute events per nurse OBJECTIVE Vitals reviewed: Respirations prevent, otherwise stable without fever media monitor, my personal review: Sinus rhythm Exam: Sedated On mechanical ventilator, endotracheal tube in good position well secured, ventilator pressures and complaints good skin warm dry color ok resps not labored lungs some rhonchi heart regular abd soft nondistended nontender, bowel sounds present limbs warm, no edema iv site ok Objective: Vital Signs Temp Pulse Resp BP Pulse Ox 37.3 C 78 21 H 161/95 H 95 10/08/16 17:00 10/08/16 17:00 10/08/16 17:00 10/08/16 17:00 10/08/16 17:00 Microbiology 10/07/16 12:21 - Final Sputum, Induced/Suctioned Laboratory Results 10/08/16 05:00 10/08/16 05:00 10/07/16 10/08/16 10/09/16 06:59 06:59 06:59 Intake Total 5700 2934.9 Output Total 2100 Balance 5700 834.9 PT 12.4 SEC (12.0-15.0) 10/06/16 17:00 INR 0.93 (0.83-1.16) 10/06/16 17:00 ICD10 Worksheet Patient Problems: Problems Problem Status Diagnosed Elevated troponin Acute Hypotension Acute Tachycardia Acute Urinary tract infection Acute C. difficile diarrhea Acute 11/02/15 Sepsis Acute VRE (vancomycin-resistant Enterococci) Acute 05/05/15
[2016-10-08 18:04] LABS: POTASSIUM 3.6 mEq/L (3.5-5.2)
[2016-10-08] MEDS: POTASSIUM Cl (KCl) 50 ML IV SCH ×2 (21:05→22:26)
[2016-10-08] MEDS: AZITHROMYCIN IV 500 MG in D5W 250 ML IV SCH (21:05)
[2016-10-08] MEDS: hydrALAZINE 20 MG/ML VIAL IVP PRN (22:26)
[2016-10-08] MEDS: fentaNYL 25 MCG PATCH TD SCH (22:27)
[2016-10-09] MEDS: POTASSIUM Cl (KCl) 50 ML IV SCH ×4 (00:26→11:57)
[2016-10-09] MEDS ORDERED: CEPACOL LOZENGE PO ONE (03:40)
[2016-10-09 03:42] LABS: ABSOLUTE IMMATURE GRANULOCYTES 0.12 10^3/uL (0.00-0.10); ADD DIFF? NO; ADD MORPH? NO; ADD SCAN? NO; ATYPICAL LYMPHOCYTE FLAG 10 (0-99); FRAGMENT RBC FLAG 0 (0-99); HEMATOCRIT 40.5 % (38.0-47.0); HEMOGLOBIN 13.2 g/dL (12.6-16.3); LEFT SHIFT FLG 20 (0-99); LIPEMIA HEMOLYSIS FLAG 80 (0-99); MEAN CELL HEMOGLOBIN 27.9 pg (27.9-34.1); MEAN CELL HEMOGLOBIN CONCENTR. 32.6 g/dL (32.4-36.7); MEAN CELL VOLUME 85.6 fL (81.5-99.8); MEAN PLATELET VOLUME 9.2 fL (8.7-11.7); PLATELET CLUMPS FLAG 10 (0-99); PLATELET COUNT 216 10^3/uL (150-400); RED BLOOD CELL COUNT 4.73 10^6/uL (4.18-5.33); RED CELL DISTRIBUTION WIDTH 16.6 % (11.5-15.2)
[2016-10-09] MEDS ORDERED: ACETAMINOPHEN 650 MG/20.3 ML UDCUP ONE (03:45)
[2016-10-09] MEDS ORDERED: CEPACOL LOZENGE PO PRN (03:57)
[2016-10-09 04:18] LABS: ANION GAP 9 mEq/L (8-16); CALCIUM 8.6 mg/dL (8.5-10.4); CARBON DIOXIDE 23 mEq/l (22-31); CHLORIDE 111 mEq/L (97-110); CREATININE 0.6 mg/dL (0.6-1.0); GLOMERULAR FILTRATION RATE > 60; GLUCOSE 93 mg/dL (70-100); MAGNESIUM 1.8 mg/dL (1.6-2.3); POTASSIUM 3.3 mEq/L (3.5-5.2); SODIUM 143 mEq/L (134-144)
[2016-10-09] MEDS: ACETAMINOPHEN 650 MG/20.3 ML UDCUP PO PRN (04:34)
[2016-10-09] MEDS: HYDROCORTISONE 100 MG/2 ML VIAL IVP SCH ×3 (06:08→22:22)
[2016-10-09] MEDS ORDERED: MAGNESIUM SULF 1 GM/DEXTROSE 100 ML IV ONE (08:18)
--- NOTE | 2016-10-09 08:42 | DX ---
Single Frontal Chest October 09, 2016 0625 hours Clinical Indications: Follow up pneumonia. Comparison: October 08, 2016. Findings: Heart size remains mildly enlarged. Retrocardiac infiltrate is unchanged. PICC terminates a t the SVC right atrial junction. The endotracheal tube and nasogastric tube have been removed. Old ri b fracture is noted on the left. The lungs are mildly hypoventilated. Impression: 1. Persistent retrocardiac infiltrate. 2. Interval removal of endotracheal tube and nasogastric tube.
[2016-10-09] MEDS: LISINOPRIL 20 MG TAB PO SCH (09:37)
[2016-10-09] MEDS: VANCOMYCIN 125 MG/2.5 ML UDL TUBE SCH ×2 (09:37→21:00)
[2016-10-09] MEDS: ENOXAPARIN 40 MG/0.4 ML SYR SC SCH (09:38)
[2016-10-09] MEDS: OSELTAMIVIR 6 MG/ML UDSYR TUBE SCH ×2 (11:02→16:50)
[2016-10-09] MEDS: GABAPENTIN 250 MG/5 ML 30 ML BOTTLE TUBE SCH ×3 (11:02→22:22)
[2016-10-09] MEDS: ESTRADIOL 42.5 GM CRTUBE VG SCH (11:17)
[2016-10-09] MEDS: ALBUTEROL 3 ML DEYVIAL IH SCH ×3 (12:08→22:38)
--- NOTE | 2016-10-09 12:19 | HOSPPROG ---
Hospitalist Progress Note Assessment/Plan: DIAGNOSIS: # acute sepsis due to pneumonia # acute hypoxemic respiratory failure # acute post influenza pneumonia, community-acquired # influenza a, acute # acute encephalopathy, multifactorial, resolved # chronic adrenal insufficiency, status post stress dose replacement # chronic pain syndrome on chronic prescribed narcotics # history of C difficile colitis, receiving prevent of oral vancomycin at this time # DVT and stress ulcer prophylaxis # full code per the patient and family's request PROCEDURES HERE: Endotracheal intubation mechanical ventilation, extubation Bronchoscopy x2 with secretion removal I reviewed the patient's condition and care plan in detail with Dr. Omar Seth I have also seen the patient on multidisciplinary rounds today PLANS: -continue supportive and respiratory care -Continue current antibiotics and antiviral -increase activity and oral intake as able -transition to usual oral steroid dose over the next few days SUBJECTIVE: Patient was successfully extubated yesterday and is now on 2 L nasal cannula oxygen She feels mostly very weak and tired. She does not notice dyspnea, pain, nausea , fever symptoms. There is no headache and she does not notice focal weakness OBJECTIVE Vitals reviewed: Stable without fever monitoring analyst, my personal review: Sinus rhythm Exam: Wide awake alert and oriented, interacting normally Now looks very comfortable breathing 2 L nasal cannula oxygen skin warm dry color ok resps not labored lungs some rhonchi heart regular abd soft nondistended nontender, bowel sounds present limbs warm, no edema iv site ok Chest x-ray, portable, done today in ICU, my personal review of images and interpretation: There is improvement in aeration overall but they are still consolidation at the left lower lobe with silhouetting of the left hemidiaphragm Objective: Vital Signs Temp Pulse Resp BP Pulse Ox 36.4 C 75 19 152/75 H 91 L 10/09/16 08:00 10/09/16 08:00 10/09/16 08:00 10/09/16 08:00 10/09/16 08:00 Microbiology 10/07/16 12:21 - Final Sputum, Induced/Suctioned Sputum Culture - Final Laboratory Results 10/09/16 03:30 10/09/16 03:30 10/08/16 10/09/16 10/10/16 06:59 06:59 06:59 Intake Total 2934.9 2352.1 Output Total 2100 1600 Balance 834.9 752.1 PT 12.4 SEC (12.0-15.0) 10/06/16 17:00 INR 0.93 (0.83-1.16) 10/06/16 17:00 ICD10 Worksheet Patient Problems: Problems Problem Status Diagnosed Elevated troponin Acute Hypotension Acute Tachycardia Acute Urinary tract infection Acute C. difficile diarrhea Acute 11/02/15 Sepsis Acute VRE (vancomycin-resistant Enterococci) Acute 05/05/15
--- NOTE | 2016-10-09 14:55 | PCMIDPN ---
Assessment/Plan: #Sepsis with Resp Failure due to Influenza/CAP. Remarkable improvement over the last 48 hours. Patient extubated on 2 L. chest x-ray today personally reviewed by me and is stable. White count remains slightly elevated but patient is on steroids. --continue ceftriaxone/azithromycin today for coverage of community-acquired pneumonia. Planned 5 day course. BAL negative # Gram-negative magali in urine: Patient is on ceftriaxone, no change. She did not have symptoms admission # diarrhea: C diff PCR negative, continue p.o. vancomycin for prevention Microbiology 10/06 BAL: Mixed oral pharyngeal laz 10/06 Urine culture: 10 K Gram-negative magali 10/05 Blood cultures: 2 sets: No growth Medication Tamiflu 75 mg twice daily, #3 ceftriaxone 1 g IV daily, # 4 Azithromycin 500 mg IV daily, #4 Vancomycin 125 mg p.o. twice daily Subjective: Patient was extubated yesterday. Patient reports she feels very tired. No trouble breathing. Rogers was removed today Objective: Vital Signs Temp Pulse Resp BP Pulse Ox 36.4 C 65 18 152/75 H 95 10/09/16 08:00 10/09/16 12:12 10/09/16 12:12 10/09/16 08:00 10/09/16 12:12 Microbiology 10/07/16 12:21 - Final Sputum, Induced/Suctioned Sputum Culture - Final Laboratory Results 10/09/16 03:30 10/09/16 03:30 10/08/16 10/09/16 10/10/16 05:59 05:59 05:59 Intake Total 6634.9 2352.1 Output Total 2100 1600 Balance 4534.9 752.1 - Physical Exam General Appearance: alert, no apparent distress, obese EENT: poor dentition Respiratory: other (Decreased breath sounds over the left hemithorax anteriorly) , No respiratory distress, No accessory muscle use Cardiac/Chest: regular rate, rhythm Extremities: No pedal edema Abdomen: non-tender, soft Skin: pallor, No rash Neuro/Psych: alert, normal mood/affect, oriented x 3 ICD10 Worksheet Patient Problems: Problems Problem Status Diagnosed Elevated troponin Acute Hypotension Acute Tachycardia Acute Urinary tract infection Acute C. difficile diarrhea Acute 11/02/15 Sepsis Acute VRE (vancomycin-resistant Enterococci) Acute 05/05/15
--- NOTE | 2016-10-09 17:26 | PDINTPN ---
Bezel Cutter Progress Note Assessment/Plan: Assessment: Acute respiratory failure . Doing well since extubation. Adequate cough, respiratory efforts. Passed swallow evaluation. Atelectasis of left lung. Significantly improved. Presumably secondary to mucus plugging. Infiltrate persists in retrocardiac area. Influenza a pneumonia with superimposed bacterial pneumonia, secretions. On Tamiflu, Rocephin and azithromycin. Id following. Obesity. History of chronic pain, narcotic use. UTI: Gram-negative magali coming in for in urine. Should be adequately covered on current antibiotics. DVT prophylaxis: On enoxaparin The GI prophylaxis: On famotidine. Plan: Continue care in the intensive care unit. Can transition to step-down unit status. Follow x-ray, laboratory. Continue antibiotics and other current medications. Start to reintroduce home medications orally. Allow patient to eat with precautions as recommended by dietary.. 50 minutes of critical care time spent directly with the patient during this visit, not including bronchoscopy. Discussed with nursing, respiratory, hospitalist, and the ICU multi disciplinary team. Subjective: Doing okay. Denies significant shortness of breath. Coughing, bringing up some clear mucus. Denies pain. Objective: Vital Signs Temp Pulse Resp BP Pulse Ox 36.4 C 69 18 163/83 H 92 10/09/16 08:00 10/09/16 15:56 10/09/16 15:56 10/09/16 14:00 10/09/16 15:56 Microbiology 10/07/16 12:21 - Final Sputum, Induced/Suctioned Sputum Culture - Final Laboratory Results 10/09/16 03:30 10/09/16 03:30 10/08/16 10/09/16 10/10/16 05:59 05:59 05:59 Intake Total 6634.9 2352.1 Output Total 2100 1600 Balance 4534.9 752.1 PT 12.4 SEC (12.0-15.0) 10/06/16 17:00 INR 0.93 (0.83-1.16) 10/06/16 17:00 CXR: Left lower lobe infiltrate behind hard. Otherwise fairly clear. Major atelectasis resolved. Physical Exam - Physical Exam General Appearance: alert, no apparent distress, obese, other (Up in chair) EENT: PERRL/EOMI, other (Nasal cannula at 2 L) Neck: normal inspection (Large neck, no stridor) Respiratory: lungs clear (Anteriorly), decreased breath sounds (At bases, coarse breath sounds with some rales and occasional rhonchi), rales, rhonchi Cardiac/Chest: regular rate, rhythm (Distant heart tones) Abdomen: non-tender, soft, other, No normal bowel sounds (Decreased, present) Pelvic Exam: other (oley catheterIn place, good urine output last 24 hours) Skin: normal color, warm/dry Extremities: pedal edema Neuro/Psych: no motor/sensory deficits, No cognition abnormalities ICD10 Worksheet Patient Problems: Problems Problem Status Diagnosed Elevated troponin Acute Hypotension Acute Tachycardia Acute Urinary tract infection Acute C. difficile diarrhea Acute 11/02/15 Sepsis Acute VRE (vancomycin-resistant Enterococci) Acute 05/05/15
[2016-10-09] MEDS: Teriparatide [Forteo] 20 MCG SQ SCH (17:34)
[2016-10-09] MEDS: CREON 24 CAP PO SCH (17:39)
[2016-10-09 20:57] LABS: POTASSIUM 2.8 mEq/L (3.5-5.2)
[2016-10-09] MEDS: AZITHROMYCIN IV 500 MG in D5W 250 ML IV SCH (22:22)
[2016-10-09] MEDS ORDERED: POTASSIUM CL 10 MEQ TAB PO ONE (23:14)
[2016-10-09] MEDS: NS 1,000 ML IV SCH (23:48)
[2016-10-09] MEDS ORDERED: POTASSIUM CL 10 MEQ TAB ONE (23:54)
[2016-10-10] MEDS: hydrALAZINE 20 MG/ML VIAL IVP PRN (05:46)
[2016-10-10] MEDS: ALBUTEROL 3 ML DEYVIAL IH SCH ×4 (06:01→21:28)
[2016-10-10 06:07] LABS: % IMMATURE GRANULYOCYTES 0.5 % (0.0-1.1); ABSOLUTE IMMATURE GRANULOCYTES 0.05 10^3/uL (0.00-0.10); ADD DIFF? NO; ADD MORPH? NO; ADD SCAN? NO; ATYPICAL LYMPHOCYTE FLAG 10 (0-99); FRAGMENT RBC FLAG 0 (0-99); HEMATOCRIT 39.5 % (38.0-47.0); LEFT SHIFT FLG 0 (0-99); LIPEMIA HEMOLYSIS FLAG 80 (0-99); MEAN CELL HEMOGLOBIN 27.9 pg (27.9-34.1); MEAN CELL HEMOGLOBIN CONCENTR. 32.9 g/dL (32.4-36.7); MEAN CELL VOLUME 84.8 fL (81.5-99.8); MEAN PLATELET VOLUME 9.6 fL (8.7-11.7); PLATELET CLUMPS FLAG 0 (0-99); PLATELET COUNT 201 10^3/uL (150-400); RED BLOOD CELL COUNT 4.66 10^6/uL (4.18-5.33); RED CELL DISTRIBUTION WIDTH 16.4 % (11.5-15.2)
[2016-10-10 06:15] LABS: MAGNESIUM 1.7 mg/dL (1.6-2.3); POTASSIUM 2.9 mEq/L (3.5-5.2)
[2016-10-10] MEDS ORDERED: MAGNESIUM SULF 1 GM/DEXTROSE 100 ML IV ONE (07:10)
[2016-10-10] MEDS: POTASSIUM Cl (KCl) 50 ML IV SCH ×8 (07:25→19:30)
[2016-10-10] MEDS: OSELTAMIVIR 6 MG/ML UDSYR TUBE SCH ×2 (07:29→15:53)
[2016-10-10] MEDS: VANCOMYCIN 125 MG/2.5 ML UDL TUBE SCH ×2 (07:29→22:08)
[2016-10-10] MEDS: ENOXAPARIN 40 MG/0.4 ML SYR SC SCH (07:30)
[2016-10-10] MEDS: LISINOPRIL 20 MG TAB PO SCH (07:30)
[2016-10-10] MEDS: GABAPENTIN 250 MG/5 ML 30 ML BOTTLE TUBE SCH ×3 (07:30→22:07)
[2016-10-10] MEDS: CREON 24 CAP PO SCH ×3 (07:30→15:53)
[2016-10-10] MEDS: HYDROCORTISONE 100 MG/2 ML VIAL IVP SCH ×2 (07:31→22:08)
--- NOTE | 2016-10-10 09:51 | DX ---
PA and Lateral Chest History: Followup pneumonia; comparison October 09, 2016 and October 08, 2016. Findings: Persistent left lower lung opacity consistent with slowly resolving pneumonia. Peribronchia l thickening is seen bilaterally. The left PICC is in stable position. The heart is borderline enlarged allowing for portable technique. Mild pulmonary venous hypertension is seen. A healed left rib fractures noted. Impression: 1. Persistent left lung opacity little change from yesterday. 2. Suspect low-grade congestive failure without pulmonary edema.
--- NOTE | 2016-10-10 10:30 | PCMIDPN ---
Assessment/Plan: #Sepsis with Resp Failure due to Influenza/CAP. Respiratory status remains stable but she has generalized weakness due to recent acute illness. --continue ceftriaxone/azithromycin for coverage of community-acquired pneumonia. Planned 5 day course. BAL negative # E coli in urine: Patient is on ceftriaxone, no change. She did not have symptoms admission # diarrhea: C diff PCR negative, continue p.o. vancomycin for prevention until off antibiotics Microbiology 10/06 BAL: Mixed oral pharyngeal laz 10/06 Urine culture: 10 K E coli 10/05 Blood cultures: 2 sets: No growth Medication Tamiflu 75 mg twice daily, #4 ceftriaxone 1 g IV daily, # 5 Azithromycin 500 mg IV daily, #5 Vancomycin 125 mg p.o. twice daily Subjective: coughing c/o pain related to chronic back pain Objective: Vital Signs Temp Pulse Resp BP Pulse Ox 36.6 C 102 H 23 H 129/63 H 89 L 10/10/16 08:00 10/10/16 08:00 10/10/16 08:00 10/10/16 08:00 10/10/16 08:00 Microbiology 10/07/16 12:28 Urine Culture - Final Urine,Clean Catch Escherichia Coli 10/07/16 12:21 - Final Sputum, Induced/Suctioned Sputum Culture - Final Laboratory Results 10/10/16 05:40 10/10/16 05:40 10/09/16 10/10/16 10/11/16 05:59 05:59 05:59 Intake Total 2352.1 2275 Output Total 1600 950 Balance 752.1 1325 - Physical Exam General Appearance: alert, no apparent distress, obese Respiratory: crackles (L side), No accessory muscle use, No wheezing Neck: supple Cardiac/Chest: regular rate, rhythm Extremities: No pedal edema Abdomen: normal bowel sounds, non-tender, soft, No distended Skin: pallor, No rash Neuro/Psych: alert, normal mood/affect, oriented x 3 - Line/s LUE PICC Lines: No drainage, No erythema ICD10 Worksheet Patient Problems: Problems Problem Status Diagnosed Elevated troponin Acute Hypotension Acute Tachycardia Acute Urinary tract infection Acute C. difficile diarrhea Acute 11/02/15 Sepsis Acute VRE (vancomycin-resistant Enterococci) Acute 05/05/15
[2016-10-10] MEDS ORDERED: PROTOCOL POTASSIUM 1 DOSE MISC PRN (10:31)
--- NOTE | 2016-10-10 12:39 | HOSPPROG ---
Hospitalist Progress Note Assessment/Plan: DIAGNOSIS: # acute sepsis due to pneumonia # acute hypoxemic respiratory failure # acute post influenza pneumonia, community-acquired # influenza a, acute # acute encephalopathy, multifactorial, resolved # chronic adrenal insufficiency, status post stress dose replacement # chronic pain syndrome on chronic prescribed narcotics # history of C difficile colitis, receiving prevent of oral vancomycin at this time # DVT and stress ulcer prophylaxis # full code per the patient and family's request PROCEDURES HERE: Endotracheal intubation mechanical ventilation, extubation Bronchoscopy x2 with secretion removal I reviewed the patient's condition and care plan in detail with Dr. Omar Seht I have also seen the patient on multidisciplinary rounds today PLANS: -continue supportive and respiratory care -Continue current antibiotics and antiviral -increase activity and oral intake as able: she is chronically severely debilitated due to her back/neuropathic pain issues, which is hampering recovery from this illness -transition to usual oral steroid dose over the next few days SUBJECTIVE: Patient was successfully extubated yesterday and is now on 2 L nasal cannula oxygen She feels mostly very weak and tired. She does not notice dyspnea, pain, nausea , fever symptoms. There is no headache and she does not notice focal weakness OBJECTIVE Vitals reviewed: Stable without fever residential monitor, my personal review: Sinus rhythm Exam: Wide awake alert and oriented, interacting normally Now looks very comfortable breathing 2 L nasal cannula oxygen skin warm dry color ok resps not labored lungs some rhonchi heart regular abd soft nondistended nontender, bowel sounds present limbs warm, no edema iv site ok Chest x-ray, portable, done today in ICU, my personal review of images and interpretation: essentially unchanged from yest still w predominantly LLL consolidation and likely effusion Objective: Vital Signs Temp Pulse Resp BP Pulse Ox 36.6 C 74 18 129/63 H 94 10/10/16 08:00 10/10/16 12:10 10/10/16 12:10 10/10/16 08:00 10/10/16 12:10 Microbiology 10/07/16 12:28 Urine Culture - Final Urine,Clean Catch Escherichia Coli 10/07/16 12:21 - Final Sputum, Induced/Suctioned Sputum Culture - Final Laboratory Results 10/10/16 05:40 10/09/16 10/10/16 10/11/16 06:59 06:59 06:59 Intake Total 2352.1 2275 Output Total 1600 950 Balance 752.1 1325 PT 12.4 SEC (12.0-15.0) 10/06/16 17:00 INR 0.93 (0.83-1.16) 10/06/16 17:00 ICD10 Worksheet Patient Problems: Problems Problem Status Diagnosed Elevated troponin Acute Hypotension Acute Tachycardia Acute Urinary tract infection Acute C. difficile diarrhea Acute 11/02/15 Sepsis Acute VRE (vancomycin-resistant Enterococci) Acute 05/05/15
[2016-10-10 12:47] LABS: POTASSIUM 2.5 mEq/L (3.5-5.2)
[2016-10-10] MEDS: LOPERAMIDE HCL 2 MG CAP PO PRN ×2 (12:56→15:53)
--- NOTE | 2016-10-10 13:20 | PDINTPN ---
Live In Housekeeper Progress Note Assessment/Plan: Assessment: Acute respiratory failure . Doing well since extubation. Adequate cough, respiratory efforts. Pulmonary congestion with rhonchi and wheezes persists. Passed swallow evaluation. Atelectasis of left lung. Significantly improved. Presumably secondary to mucus plugging. Infiltrate persists in retrocardiac area. Influenza A with superimposed bacterial pneumonia, secretions. On Tamiflu, Rocephin and azithromycin. Id following. Obesity. History of chronic pain, narcotic use. History of adrenal insufficiency. Metabolic: Hypokalemia present, on increased replacement. Potassium losses in part secondary to diarrhea. UTI: E-coli in urine. Covered on current antibiotics. DVT prophylaxis: On enoxaparin The GI prophylaxis: On famotidine. Plan: Continue care in the intensive care unit. Increase mobilization as tolerated. Uses a walker at home. Follow x-ray, laboratory. Continue antibiotics, bronchodilator therapy, and other current medications. Start to reintroduce home medications orally. Allow patient to eat with precautions as recommended by dietary. Continue to decrease hydrocortisone. 35 minutes of critical care time spent directly with the patient during this visit, not including bronchoscopy. Discussed with nursing, respiratory, hospitalist, and the ICU multi disciplinary team. Subjective: She feels she is doing better, feels better. Still with some shortness of breath, cough and mucus. Denies significant pain. Does have some diarrhea. Objective: Vital Signs Temp Pulse Resp BP Pulse Ox 36.6 C 74 18 129/63 H 94 10/10/16 08:00 10/10/16 12:10 10/10/16 12:10 10/10/16 08:00 10/10/16 12:10 Microbiology 10/07/16 12:28 Urine Culture - Final Urine,Clean Catch Escherichia Coli 10/07/16 12:21 - Final Sputum, Induced/Suctioned Sputum Culture - Final Laboratory Results 10/10/16 05:40 10/10/16 12:19 10/09/16 10/10/16 10/11/16 05:59 05:59 05:59 Intake Total 2352.1 2275 Output Total 1600 950 Balance 752.1 1325 PT 12.4 SEC (12.0-15.0) 10/06/16 17:00 INR 0.93 (0.83-1.16) 10/06/16 17:00 Laboratory Tests 10/09/16 03:30 Sodium 143 Potassium 3.3 L Chloride 111 H Carbon Dioxide 23 BUN 19 Creatinine 0.6 Glucose 93 Calcium 8.6 Magnesium 1.8 CXR: Hypoventilatory changes persist. Retrocardiac consolidation/atelectasis persists as well. Physical Exam - Physical Exam General Appearance: alert, no apparent distress EENT: PERRL/EOMI, other (Nasal cannula at 4 L) Neck: normal inspection Respiratory: decreased breath sounds, rales, rhonchi, wheezing, No lungs clear, No normal breath sounds, No respiratory distress Cardiac/Chest: regular rate, rhythm Abdomen: non-tender, soft (Obese), No normal bowel sounds (Decreased, present) Skin: normal color, warm/dry Extremities: pedal edema Neuro/Psych: no motor/sensory deficits, No cognition abnormalities ICD10 Worksheet Patient Problems: Problems Problem Status Diagnosed Elevated troponin Acute Hypotension Acute Tachycardia Acute Urinary tract infection Acute C. difficile diarrhea Acute 11/02/15 Sepsis Acute VRE (vancomycin-resistant Enterococci) Acute 05/05/15
[2016-10-10] MEDS ORDERED: HYDROCORTISONE 100 MG/2 ML VIAL IVP SCH (13:31)
[2016-10-10 17:46] LABS: POTASSIUM 3.4 mEq/L (3.5-5.2)
[2016-10-10] MEDS: Teriparatide [Forteo] 20 MCG SQ SCH (18:32)
[2016-10-10] MEDS: MELATONIN 3 MG TAB PO SCH (22:08)
[2016-10-10] MEDS: fentaNYL 25 MCG PATCH TD SCH (22:09)
[2016-10-10] MEDS: AZITHROMYCIN IV 500 MG in D5W 250 ML IV SCH (22:09)
[2016-10-11] MEDS: LOPERAMIDE HCL 2 MG CAP PO PRN ×2 (00:50→09:01)
[2016-10-11] MEDS: ALBUTEROL 3 ML DEYVIAL IH SCH ×4 (05:19→22:07)
[2016-10-11] MEDS: POTASSIUM Cl (KCl) 50 ML IV SCH ×2 (05:45→05:46)
[2016-10-11 07:20] LABS: % IMMATURE GRANULYOCYTES 1.4 % (0.0-1.1); ABSOLUTE IMMATURE GRANULOCYTES 0.09 10^3/uL (0.00-0.10); ADD DIFF? NO; ADD MORPH? NO; ADD SCAN? NO; ATYPICAL LYMPHOCYTE FLAG 40 (0-99); FRAGMENT RBC FLAG 0 (0-99); HEMATOCRIT 37.1 % (38.0-47.0); HEMOGLOBIN 12.3 g/dL (12.6-16.3); LEFT SHIFT FLG 10 (0-99); LIPEMIA HEMOLYSIS FLAG 80 (0-99); MEAN CELL HEMOGLOBIN 28.3 pg (27.9-34.1); MEAN CELL HEMOGLOBIN CONCENTR. 33.2 g/dL (32.4-36.7); MEAN CELL VOLUME 85.5 fL (81.5-99.8); MEAN PLATELET VOLUME 9.2 fL (8.7-11.7); PLATELET CLUMPS FLAG 0 (0-99); PLATELET COUNT 174 10^3/uL (150-400); RED BLOOD CELL COUNT 4.34 10^6/uL (4.18-5.33); RED CELL DISTRIBUTION WIDTH 16.3 % (11.5-15.2)
[2016-10-11 07:27] LABS: ALANINE AMINOTRANSFERASE 45 IU/L (9-52); ALBUMIN 2.1 g/dL (3.5-5.0); ALKALINE PHOSPHATASE 102 IU/L (38-126); ANION GAP 4 mEq/L (8-16); ASPARTATE AMINOTRANSFERASE 32 IU/L (14-46); BILIRUBIN,TOTAL 0.7 mg/dL (0.1-1.4); CALCIUM 7.8 mg/dL (8.5-10.4); CARBON DIOXIDE 28 mEq/l (22-31); CHLORIDE 108 mEq/L (97-110); CREATININE 0.5 mg/dL (0.6-1.0); GLOMERULAR FILTRATION RATE > 60; GLUCOSE 86 mg/dL (70-100); MAGNESIUM 1.7 mg/dL (1.6-2.3); POTASSIUM 3.7 mEq/L (3.5-5.2); SODIUM 140 mEq/L (134-144); TOTAL PROTEIN 4.5 g/dL (6.3-8.2)
[2016-10-11] MEDS: ENOXAPARIN 40 MG/0.4 ML SYR SC SCH (08:05)
[2016-10-11] MEDS: LISINOPRIL 20 MG TAB PO SCH (08:05)
[2016-10-11] MEDS: VANCOMYCIN 125 MG/2.5 ML UDL TUBE SCH ×2 (08:05→20:34)
[2016-10-11] MEDS: HYDROCORTISONE 100 MG/2 ML VIAL IVP SCH ×2 (08:05→20:33)
[2016-10-11] MEDS: CREON 24 CAP PO SCH ×5 (08:05→18:41)
[2016-10-11] MEDS: CHOLECALCIFEROL VIT D3 2,000 UNITS TAB/CAP PO SCH (08:05)
[2016-10-11] MEDS: OSELTAMIVIR 6 MG/ML UDSYR TUBE SCH ×2 (08:06→16:57)
[2016-10-11] MEDS: GABAPENTIN 250 MG/5 ML 30 ML BOTTLE TUBE SCH ×2 (08:07→17:18)
[2016-10-11] MEDS: POTASSIUM Cl (KCl) 40 MEQ in NS 1,000 ML IV SCH (09:01)
[2016-10-11] MEDS: BUDESONIDE 3 MG EC CAP PO SCH (09:01)
--- NOTE | 2016-10-11 09:43 | PCMIDPN ---
Assessment/Plan: #Sepsis with Resp Failure due to Influenza/CAP. Respiratory status remains stable but she has generalized weakness due to recent acute illness. --s/p 5 day course ceftriaxone/azithromycin for empiric coverage of community- acquired pneumonia. --last day of Tamiflu today # E coli in urine: no symptoms, despite this, was treated because of overlap with Rx for CAP # h/o Cdiff: continue ppx PO vancomycin until off broad spec abx 2 days, C diff PCR negative Microbiology 10/08 Cdiff negative 10/06 BAL: Mixed oral pharyngeal laz 10/06 Urine culture: 10 K E coli 10/05 Blood cultures: 2 sets: No growth Medication Tamiflu 75 mg twice daily, #5 ceftriaxone 1 g IV daily --dc today Azithromycin 500 mg IV daily, --dc today Vancomycin 125 mg p.o. twice daily Subjective: feels weak, doesn't like being in the hospital Objective: Vital Signs Temp Pulse Resp BP Pulse Ox 37.2 C 79 24 H 166/96 H 90 L 10/11/16 08:00 10/11/16 08:00 10/11/16 08:00 10/11/16 08:00 10/11/16 08:00 Microbiology 10/07/16 12:28 Urine Culture - Final Urine,Clean Catch Escherichia Coli Laboratory Results 10/11/16 06:55 10/11/16 06:55 10/10/16 10/11/16 10/12/16 05:59 05:59 05:59 Intake Total 2275 1536 Output Total 950 525 Balance 1325 1011 - Physical Exam General Appearance: alert, no apparent distress, obese EENT: pale conjunctiva, No scleral icterus, No thrush Respiratory: crackles (L base), No accessory muscle use Neck: supple Cardiac/Chest: regular rate, rhythm Extremities: No pedal edema Abdomen: normal bowel sounds, non-tender, soft, No distended Skin: No rash Neuro/Psych: alert, normal mood/affect, oriented x 3 - Line/s LUE PICC Lines: other (bruising), No drainage, No erythema ICD10 Worksheet Patient Problems: Problems Problem Status Diagnosed Elevated troponin Acute Hypotension Acute Tachycardia Acute Urinary tract infection Acute C. difficile diarrhea Acute 11/02/15 Sepsis Acute VRE (vancomycin-resistant Enterococci) Acute 05/05/15
[2016-10-11] MEDS: oxyCODONE IR 5 MG TAB PO PRN ×3 (10:57→21:50)
[2016-10-11] MEDS ORDERED: POTASSIUM CL 10 MEQ TAB PO ONE ×2 (11:10→18:53)
[2016-10-11] MEDS ORDERED: MAGNESIUM SULF 1 GM/DEXTROSE 100 ML IV ONE (11:10)
--- NOTE | 2016-10-11 16:49 | PDINTPN ---
Multiple Spindle Screw Machine Operator Progress Note Assessment/Plan: Assessment: Acute respiratory failure . Doing well since extubation. Adequate cough, respiratory efforts. Pulmonary congestion with rhonchi and wheezes persists. Passed swallow evaluation. Atelectasis of left lung. Significantly improved. Presumably secondary to mucus plugging. Infiltrate persists in retrocardiac area. Influenza A with superimposed bacterial pneumonia, secretions. On Tamiflu, Rocephin and azithromycin. Id following, considering discontinuing antibiotics at 5 days. Obesity. History of chronic pain, narcotic use. History of adrenal insufficiency. Metabolic: Hypokalemia present, on increased replacement. Potassium losses in part secondary to diarrhea. UTI: E-coli in urine. Covered on current antibiotics. DVT prophylaxis: On enoxaparin The GI prophylaxis: On famotidine. Plan: Can transfer to a medical-surgical bed. Increase mobilization as tolerated. Uses a walker at home. Follow x-ray intermittently, laboratory. Continue antibiotics per recommendations from Infectious Disease. Continue bronchodilator therapy, and other current medications. Continue home medications orally. I will stop stress hydrocortisone after p.m. dose today and restart patient's hydrocortisone as she was getting as an outpatient prior to admission. Repeat chest x-ray prior to discharge or as needed.. 30 minutes of critical care time spent directly with the patient during this visit. Discussed with nursing, respiratory, hospitalist, and the ICU multi disciplinary team. 10/11/16 16:54 Subjective: Doing fairly well. Thinking about wanting to go home. Has some shortness of breath, persistent cough and mucus. Otherwise okay. Objective: Vital Signs Temp Pulse Resp BP Pulse Ox 36.4 C 90 18 155/96 H 90 L 10/11/16 15:41 10/11/16 15:41 10/11/16 15:41 10/11/16 15:41 10/11/16 15:41 Laboratory Results 10/11/16 06:55 10/11/16 06:55 10/10/16 10/11/16 10/12/16 05:59 05:59 05:59 Intake Total 2275 1536 Output Total 487 525 Balance 1325 1011 PT 12.4 SEC (12.0-15.0) 10/06/16 17:00 INR 0.93 (0.83-1.16) 10/06/16 17:00 CXR: None today Physical Exam - Physical Exam General Appearance: alert, no apparent distress EENT: other (Nasal cannula at 5 L) Neck: normal inspection (No JVD) Respiratory: decreased breath sounds, rales (Scattered rales present), rhonchi ( Few rhonchi), wheezing (Scattered expiratory wheezes), No respiratory distress Cardiac/Chest: regular rate, rhythm (Distant) Abdomen: normal bowel sounds, non-tender, soft (Obese) Skin: normal color, warm/dry Extremities: pedal edema (Trace +) Neuro/Psych: no motor/sensory deficits, No cognition abnormalities ICD10 Worksheet Patient Problems: Problems Problem Status Diagnosed Elevated troponin Acute Hypotension Acute Tachycardia Acute Urinary tract infection Acute C. difficile diarrhea Acute 11/02/15 Sepsis Acute VRE (vancomycin-resistant Enterococci) Acute 05/05/15
[2016-10-11] MEDS: Teriparatide [Forteo] 20 MCG SQ SCH (16:59)
--- NOTE | 2016-10-11 17:43 | HOSPPROG ---
Hospitalist Progress Note Assessment/Plan: DIAGNOSIS: # acute sepsis due to pneumonia # acute hypoxemic respiratory failure # acute post influenza pneumonia, community-acquired # influenza a, acute # acute encephalopathy, multifactorial, resolved # chronic adrenal insufficiency, status post stress dose replacement # chronic pain syndrome on chronic prescribed narcotics # history of C difficile colitis, receiving prevent of oral vancomycin at this time # DVT and stress ulcer prophylaxis # full code per the patient and family's request At this point she is recovering very nicely from infection Her main hold up is immobility due to pain/weakness She will need ongoing PT OT, would like to go directly home and is not willing at present to consider SNF rehab PROCEDURES HERE: Endotracheal intubation mechanical ventilation, extubation Bronchoscopy x2 with secretion removal I reviewed the patient's condition and care plan in detail with Dr. Omar Seth I have also seen the patient on multidisciplinary rounds today PLANS: -continue supportive and respiratory care -Continue current antibiotics and antiviral -increase activity and oral intake as able: she is chronically severely debilitated due to her back/neuropathic pain issues, which is hampering recovery from this illness -transition to usual oral steroid dose over the next few days SUBJECTIVE: Main complaints today are back pain and weakness, both of which are chronic for her She has not ambulated yet, has not really been very willing to participate in PT OT very much so far no fever sxs or sob better appetite OBJECTIVE Vitals reviewed: 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, my personal review: Sinus rhythm Exam: Wide awake alert and oriented, interacting normally Now looks very comfortable breathing 2 L nasal cannula oxygen skin warm dry color ok resps not labored lungs some rhonchi heart regular abd soft nondistended nontender, bowel sounds present limbs warm, no edema iv site ok Chest x-ray, portable, done today in ICU, my personal review of images and interpretation: essentially unchanged from yest still w predominantly LLL consolidation and likely effusion Objective: Vital Signs Temp Pulse Resp BP Pulse Ox 36.4 C 76 15 155/96 H 95 10/11/16 15:41 10/11/16 16:41 10/11/16 16:41 10/11/16 15:41 10/11/16 16:41 Laboratory Results 10/11/16 06:55 10/11/16 06:55 10/10/16 10/11/16 10/12/16 06:59 06:59 06:59 Intake Total 2275 1536 629 Output Total 119 525 Balance 1325 1011 629 PT 12.4 SEC (12.0-15.0) 10/06/16 17:00 INR 0.93 (0.83-1.16) 10/06/16 17:00 ICD10 Worksheet Patient Problems: Problems Problem Status Diagnosed Elevated troponin Acute Hypotension Acute Tachycardia Acute Urinary tract infection Acute C. difficile diarrhea Acute 11/02/15 Sepsis Acute VRE (vancomycin-resistant Enterococci) Acute 05/05/15
[2016-10-11 18:23] LABS: POTASSIUM 3.6 mEq/L (3.5-5.2)
[2016-10-11] MEDS: GABAPENTIN 300 MG CAP PO SCH ×3 (20:33→21:52)
[2016-10-11] MEDS: MELATONIN 3 MG TAB PO SCH ×2 (20:34→21:52)
[2016-10-12 06:27] LABS: POTASSIUM 3.5 mEq/L (3.5-5.2)
[2016-10-12] MEDS: ALBUTEROL 3 ML DEYVIAL IH SCH ×4 (06:38→20:47)
[2016-10-12] MEDS ORDERED: POTASSIUM CL 10 MEQ TAB PO ONE (07:38)
--- NOTE | 2016-10-12 08:09 | DX ---
Portable Chest, 6:22 a.m. Clinical Indications: Followup pneumonia Comparison: October 10, and Findings: Left arm PICC line remains in place. Left lower lobe consolidation remains. I suspect ther e is an associated small left pleural effusion. Impression: Little if any change since yesterday.
[2016-10-12] MEDS: GABAPENTIN 300 MG CAP PO SCH ×3 (08:16→20:22)
[2016-10-12] MEDS: CREON 24 CAP PO SCH ×3 (08:16→18:12)
[2016-10-12] MEDS: BUDESONIDE 3 MG EC CAP PO SCH (08:16)
[2016-10-12] MEDS: HYDROCORTISONE 10 MG TAB PO SCH (08:17)
[2016-10-12] MEDS: LISINOPRIL 20 MG TAB PO SCH (08:18)
[2016-10-12] MEDS: VANCOMYCIN 125 MG/2.5 ML UDL TUBE SCH (08:18)
[2016-10-12] MEDS: CHOLECALCIFEROL VIT D3 2,000 UNITS TAB/CAP PO SCH (08:18)
[2016-10-12] MEDS: ENOXAPARIN 40 MG/0.4 ML SYR SC SCH (08:18)
[2016-10-12] MEDS: ESTRADIOL 42.5 GM CRTUBE VG SCH (10:16)
[2016-10-12] MEDS: ACETAMINOPHEN 650 MG/20.3 ML UDCUP PO PRN (10:16)
[2016-10-12] MEDS: oxyCODONE IR 5 MG TAB PO PRN ×2 (10:16→16:12)
--- NOTE | 2016-10-12 12:54 | HOSPPROG ---
Hospitalist Progress Note Assessment/Plan: Patient is a 61-year-old female who was found down by her care provider. On admission to the ER the patient had noted that she has been having increased weakness as well as malaise and cough. She was admitted and noted to have sepsis due to pneumonia. She required endotracheal intubation and was on a ventilator. She also has had 2 bronchoscopies. Today is my 1st encounter with the patient. Chart reviewed. #. Sepsis with respiratory failure due to influenza/community-acquired pneumonia * she has had full treatment with Tamiflu * she is status post a 5 day course of ceftriaxone and azithromycin mycin * 2nd set of blood culture shows no growth * chest x-ray today shows left lower lobe consolidation/ little change #. acute hypoxemic respiratory failure * on 3 L of oxygen and doing well #. acute encephalopathy/resolved #. chronic adrenal insufficiency status post stress dose replacement #. chronic pain on continuous opiates * on fentanyl and oxy IR * patient has requested increase frequency of Oxy IR/ explained she was found down at her home and will avoid increasing this #. history of C diff colitis * no diarrhea #. DVT prophylaxis: LMWH #. Plan: spoke with CM/ she will be ready to go to SNF possibly tomorrow/ suspect she is close to her baselin Subjective: Donna has no complaints/ ambulating with walker in the hallway. Objective: Vital Signs Temp Pulse Resp BP Pulse Ox 37.0 C 95 18 112/66 92 10/12/16 11:11 10/12/16 11:11 10/12/16 11:11 10/12/16 11:11 10/12/16 11:11 Laboratory Results 10/11/16 06:55 10/12/16 05:45 10/11/16 10/12/16 10/13/16 05:59 05:59 05:59 Intake Total 1536 1210 150 Output Total 525 Balance 1011 1210 150 PT 12.4 SEC (12.0-15.0) 10/06/16 17:00 INR 0.93 (0.83-1.16) 10/06/16 17:00 - Physical Exam Constitutional: no apparent distress, chronically ill appearing, obese Eyes: PERRL Ears, Nose, Mouth, Throat: hearing normal Cardiovascular: regular rate and rhythym Respiratory: no respiratory distress, reduced air movement (bibasilar) Gastrointestinal: normoactive bowel sounds Skin: warm Musculoskeletal: generalized weakness Neurologic: AAOx3 Psychiatric: interacting appropriately ICD10 Worksheet Patient Problems: Problems Problem Status Diagnosed Elevated troponin Acute Hypotension Acute Tachycardia Acute Urinary tract infection Acute C. difficile diarrhea Acute 11/02/15 Sepsis Acute VRE (vancomycin-resistant Enterococci) Acute 05/05/15
[2016-10-12] MEDS ORDERED: HYDROCORTISONE 10 MG TAB PO SCH (16:00)
[2016-10-12] MEDS: Teriparatide [Forteo] 20 MCG SQ SCH (17:57)
--- NOTE | 2016-10-12 18:14 | PCMIDPN ---
Assessment/Plan: Assessment: sepsis due to influenza and secondary bacterial pneumonia -- clinically improved and completed with antibacterial treatment. Remaining on PO Vanco for one more day -- prior c. diff colitis. Plan: 1) One more day of PO Vancomycin. 2) Possible D/C to SNF? or rehab? 10/13/16 00:25 Subjective: Patient is resting in her hospital bed. States that she feels much much better than admission. Still quite weak however. Objective: po Vancomycin Vital Signs Temp Pulse Resp BP Pulse Ox 36.6 C 86 16 124/81 H 93 10/12/16 15:01 10/12/16 15:19 10/12/16 15:19 10/12/16 15:01 10/12/16 15:19 Laboratory Results 10/11/16 06:55 10/12/16 05:45 10/11/16 10/12/16 10/13/16 05:59 05:59 05:59 Intake Total 1536 1210 150 Output Total 525 Balance 1011 1210 150 - Physical Exam General Appearance: WD/WN, alert, no apparent distress, non-toxic Respiratory: lungs clear, normal breath sounds, No respiratory distress Cardiac/Chest: regular rate, rhythm, No tachycardia Skin: normal color, warm/dry, No rash Neuro/Psych: alert, normal mood/affect, oriented x 3 ICD10 Worksheet Patient Problems: Problems Problem Status Diagnosed Elevated troponin Acute Hypotension Acute Tachycardia Acute Urinary tract infection Acute C. difficile diarrhea Acute 11/02/15 Sepsis Acute VRE (vancomycin-resistant Enterococci) Acute 05/05/15
[2016-10-12 19:45] LABS: POTASSIUM 4.2 mEq/L (3.5-5.2)
[2016-10-12] MEDS: MELATONIN 3 MG TAB PO SCH (20:23)
[2016-10-12] MEDS: fentaNYL 25 MCG PATCH TD SCH (20:23)
[2016-10-12] MEDS: VANCOMYCIN 125 MG/2.5 ML UDL PO SCH (20:23)
[2016-10-13] MEDS: POTASSIUM Cl (KCl) 40 MEQ in NS 1,000 ML IV SCH (00:59)
[2016-10-13] MEDS: ALBUTEROL 3 ML DEYVIAL IH SCH ×2 (05:35→12:58)
[2016-10-13] MEDS: oxyCODONE IR 5 MG TAB PO PRN ×2 (05:41→12:35)
[2016-10-13 06:48] LABS: MAGNESIUM 1.7 mg/dL (1.6-2.3)
[2016-10-13 07:00] LABS: POTASSIUM 7.1 mEq/L (3.5-5.2)
[2016-10-13 07:38] VITALS: BP 117/72; TEMP 99.6
[2016-10-13 07:55] LABS: POTASSIUM 6.8 mEq/L (3.5-5.2)
[2016-10-13] MEDS ORDERED: D50W 25 GM/50 ML SYR IVP ONE (08:06)
[2016-10-13] MEDS ORDERED: INSULIN REGULAR HUMAN 100 UNIT/ML IVP ONE (08:06)
[2016-10-13] MEDS ORDERED: CALCIUM GLUCONATE 2 GM in D5W 50 ML IV ONE (08:07)
--- NOTE | 2016-10-13 08:40 | CPEKG ---
Heart Rate: 78 RR Interval: 769 P-R Interval: 136 QRSD Interval: 88 QT Interval: 380 QTC Interval: 433 P Accord: -6 QRS Accord: -21 T Wave Accord: 8 EKG Severity - OTHERWISE NORMAL ECG - EKG Impression: SINUS RHYTHM EKG Impression: BORDERLINE LEFT AXIS DEVIATION Electronically Signed By: Chet Wing 13-Oct-2016 17:23:38
[2016-10-13 09:07] LABS: POTASSIUM 3.9 mEq/L (3.5-5.2)
[2016-10-13] MEDS: CREON 24 CAP PO SCH ×2 (10:19→12:35)
[2016-10-13] MEDS: VANCOMYCIN 125 MG/2.5 ML UDL PO SCH (10:32)
[2016-10-13] MEDS: BUDESONIDE 3 MG EC CAP PO SCH (10:33)
[2016-10-13] MEDS: CHOLECALCIFEROL VIT D3 2,000 UNITS TAB/CAP PO SCH (10:33)
[2016-10-13] MEDS: HYDROCORTISONE 10 MG TAB PO SCH (10:34)
[2016-10-13] MEDS: LISINOPRIL 20 MG TAB PO SCH (10:34)
[2016-10-13] MEDS: GABAPENTIN 300 MG CAP PO SCH (10:34)
--- NOTE | 2016-10-13 11:02 | PDIAF ---
- Diagnosis Diagnosis: PNA Code Status: Full Code - Medication Management Discharge Medications: Medications to Continue on Transfer Cholecalciferol Vit D3 [Vitamin D3 (*)] 2,000 units PO DAILY 05/05/15 [Last Taken 01/21/16 08:42] Lipase/Protease/Amylase [Creon 24 (*)] 3 cap PO AC 01/02/16 [Last Taken 08:42] Teriparatide [Forteo] 20 mcg SQ DAILY@18 01/02/16 [Last Taken 01/16/16 18:38] Melatonin [Melatonin 3 MG (*)] 2 - 3 tab PO HS 01/17/16 [Last Taken 01/20/16 21: 05] Hydrocortisone [Cortef 10 mg (*)] 10 mg PO DAILY16 #30 tab 01/27/16 [Last Taken Unknown] Hydrocortisone [Cortef 10 mg (*)] 15 mg PO DAILY #30 tab 01/27/16 [Last Taken Unknown] fentaNYL [Duragesic 25 MCG Patch (*)] 25 mcg TD Q48H #15 patch 01/27/16 [Last Taken Unknown] oxyCODONE IR [Oxycodone Ir (*)] 5 mg PO Q6H PRN #120 tab 01/28/16 [Last Taken Unknown] Budesonide [Budesonide EC] 9 mg PO DAILY 10/06/16 [Last Taken Unknown] Estradiol [Estrace Vaginal (*)] 1 gm VAG Q3D 10/06/16 [Last Taken Unknown] Gabapentin [Neurontin 300 MG (*)] 300 mg PO DAILY 10/06/16 [Last Taken Unknown] Gabapentin [Neurontin 300 MG (*)] 600 mg PO DAILY@16 10/06/16 [Last Taken Unknown] Gabapentin [Neurontin 300 MG (*)] 900 mg PO HS 10/06/16 [Last Taken Unknown] Lisinopril [Zestril 20 mg (*)] 20 mg PO DAILY 10/06/16 [Last Taken Unknown] Acetaminophen [Tylenol 650/20.3ML Oral Liq (*)] 650 mg PO Q6 PRN #0 udcup [Last Taken Unknown] Albuterol [Proventil Neb] 3 ml IH QID #0 deyvial 10/13/16 [Last Taken Unknown] Benzocaine/Menthol 15/4 [Cepacol Lozenge] 1 ea PO PRN PRN #0 lozenge 10/13/16 [ Last Taken Unknown] Ipratropium/Albuterol [Duoneb (*)] 3 ml IH Q6HRS PRN #0 deyvial 10/13/16 [Last Taken Unknown] Loperamide HCl [Imodium 2 mg (*)] 2 mg PO QID PRN #0 cap 10/13/16 [Last Taken Unknown] Discharge Medications: Refer to the Discharge Home Medication list for PRN reason. PICC Care - Routine: N/A - Orders Services needed: Registered Nurse, Physical Therapy, Occupational Therapy - Follow Up Care Current Providers and Referrals: Edmar Ling MD [Primary Care Provider] - As per Instructions
[2016-10-13] MEDS: ENOXAPARIN 40 MG/0.4 ML SYR SC SCH (12:35)
[2016-10-13 13:06] VITALS: PULSE 84; RESP 18; O2SAT 92
--- NOTE | 2016-10-13 13:18 | GDS ---
[f rep st] DISCHARGE SUMMARY DISCHARGE DIAGNOSES: 1. Sepsis with respiratory failure due to influenza. 2. Community-acquired pneumonia. 3. Acute hypoxemic respiratory failure. 4. Acute encephalopathy. 5. Chronic adrenal insufficiency. 6. Chronic pain. 7. History of Clostridium difficile. PHYSICAL EXAM: GENERAL: The patient is up in the chair, alert, oriented, no acute distress. VITAL SIGNS: Afebrile 37.6, pulse is 73, respiratory rate 16, blood pressure is 117/72. She is saturating 91% on 2 L. I have seen and evaluated the patient on the day of discharge. HOSPITAL COURSE: Ms. Cortes is a 61-year-old female, who presented to the emergency room after bein g found down. She was evaluated and diagnosed with: 1. Sepsis with respiratory failure due to influenza: During this hospitalization, she was treated w ith Tamiflu. She required aggressive interventions secondary to her respiratory failure. 2. Community-acquired pneumonia: Patient has been treated with Rocephin, as well as azithromycin an d is improved. 3. Acute hypoxemic respiratory failure: She has responded well and her hypoxemia is resolving. 4. Acute encephalopathy: This has resolved. 5. Chronic adrenal insufficiency: She has received stress dose replacement during this hospital cou rse, has no signs of complication. 6. Chronic pain, on continuous opiates: She will continue her previously prescribed narcotic medica tions. 7. History of Clostridium difficile: She has been treated prophylactically with vancomycin during t his hospitalization while on antibiotic therapy. Her vancomycin has been discontinued at the time of disposition. DISPOSITION: The patient will be discharged to rehabilitation for further strengthening and conditio derrick. She received an evaluation from Physical Therapy and Occupational Therapy, and it is felt that she is unsafe to be discharged home independently. She is in agreement with this plan and will be d ischarged to [facility]. DISCHARGE MEDICATIONS: Please refer to EMR form. Follow up will be with her primary care physician, Dr. Edmar Ling, as well as a physician at [facility]. I spent greater than 35 minutes in the care, coordination, and management of this patient's dispositi on. /[id number]/MODL
== END 2016-10-13 14:25 | DRG 853 ==
LOC: EDUNIT# → F2W 22:19 → F2N 10-07 03:07 → F3E 10-11 11:33
PROVIDERS: ADMIT Hospitalist; ATTEND Hospitalist
PROC: 5A1945Z Respiratory Ventilation, 24-96 Consecutive Hours (ICD-10-PCS; 2016-10-07)
PROC: 0B9B8ZX Drainage of Left Lower Lobe Bronchus, Via Natural or Artificial Opening Endoscopic, Diagnostic (ICD-10-PCS; 2016-10-07)
PROC: 0BH17EZ Insertion of Endotracheal Airway into Trachea, Via Natural or Artificial Opening (ICD-10-PCS; 2016-10-07)
PROC: 0B968ZX Drainage of Right Lower Lobe Bronchus, Via Natural or Artificial Opening Endoscopic, Diagnostic (ICD-10-PCS; 2016-10-07)
PROC: 02HV33Z Insertion of Infusion Device into Superior Vena Cava, Percutaneous Approach (ICD-10-PCS; 2016-10-07)
PROC: 0B968ZZ Drainage of Right Lower Lobe Bronchus, Via Natural or Artificial Opening Endoscopic (ICD-10-PCS; principal; 2016-10-08)
PROC: 0B9B8ZZ Drainage of Left Lower Lobe Bronchus, Via Natural or Artificial Opening Endoscopic (ICD-10-PCS; principal; 2016-10-08)
DX: A41.89 Other specified sepsis (principal); J10.00 Influenza due to other identified influenza virus with unspecified type of pneumonia; J18.9 Pneumonia, unspecified organism; J96.01 Acute respiratory failure with hypoxia; G93.40 Encephalopathy, unspecified; J98.11 Atelectasis; N39.0 Urinary tract infection, site not specified; E27.40 Unspecified adrenocortical insufficiency; G89.29 Other chronic pain; F11.20 Opioid dependence, uncomplicated; I10 Essential (primary) hypertension; M06.9 Rheumatoid arthritis, unspecified; Z98.1 Arthrodesis status
CPT/HCPCS: 92526-GN; 92610-GN; 96365; 97116-GP; 97163-GP; 97166-GO; 97530-GO; 97530-GP; 97535-GO; C1751; G8978-GP-CM; G8979-GP-CI; G8980-GP-CI; G8987-GO-CL; G8988-GO-CI; G8996-GN-CH; G8996-GN-CK; G8997-GN-CH; G8998-GN-CH; J0360; J0456; J0610; J0696; J1650; J2250; J2405; J2704; J3010; J3475

== ENCOUNTER → 2016-11-26 | Outpatient (CLI) | payer OTHER, MEDICAID | LOC: BHFA 11:30 | PROVIDERS: ATTEND Internal Medicine Cardiovascular Disease | DX: I10 Essential (primary) hypertension (principal); R60.9 Edema, unspecified ==

== ENCOUNTER → 2016-12-03 | Outpatient (CLI) | payer OTHER, MEDICAID | LOC: FLAB 12:26 | PROVIDERS: ATTEND Neurological Surgery | DX: M41.86 Other forms of scoliosis, lumbar region (principal); Z98.1 Arthrodesis status ==

== ENCOUNTER → 2017-03-17 | Outpatient (CLI) | payer OTHER, MEDICAID | LOC: FIMAGING 14:08 | PROVIDERS: ATTEND Neurological Surgery | DX: M54.5 Low back pain (principal); Z98.1 Arthrodesis status; M51.36 Other intervertebral disc degeneration, lumbar region; M51.26 Other intervertebral disc displacement, lumbar region; M48.06 Spinal stenosis, lumbar region; M25.78 Osteophyte, vertebrae ==

== ENCOUNTER → 2017-04-12 | Outpatient (CLI) | payer OTHER, MEDICAID | LOC: FIMAGING 15:36 | PROVIDERS: ATTEND Internal Medicine | DX: M79.671 Pain in right foot (principal); M20.11 Hallux valgus (acquired), right foot; Z87.81 Personal history of (healed) traumatic fracture ==

== ENCOUNTER 2017-04-14 11:40 | Outpatient (CLI) | payer OTHER, MEDICAID ==
[2017-04-14] MEDS ORDERED: PROPOFOL/EMULSION 500 MG/50 ML BOTTLE IV ONE (13:23)
[2017-04-14] MEDS ORDERED: MIDAZOLAM 2 MG/2 ML VIAL ONE (13:45)
--- NOTE | 2017-04-14 15:04 | PDANEPAE ---
ANE History of Present Illness Chronic Pain status post Spinal Fusion times 2 ANE Past Medical History - Cardiovascular History Hx Hypertension: Yes Hx Arrhythmias: No Hx Chest Pain: No Hx Coronary Artery / Peripheral Vascular Disease: No Hx CHF / Valvular Disease: No Hx Palpitations: No - Pulmonary History Hx COPD: No Hx Asthma/Reactive Airway Disease: No Hx Recent Upper Respiratory Infection: No Hx Oxygen in Use at Home: No Hx Sleep Apnea: No Pulmonary History Comment: Hx of recurrent pneumonias, MARY TRIGGERS. Occasional smoker in the past, quite 15 years ago. PE with IVC filter 2010. 2011 IVC filter removed - Neurologic History Hx Cerebrovascular Accident: No Hx Seizures: No Hx Dementia: No Neurologic History Comment: Peripheral neuropathy - Endocrine History Hx Diabetes: No - Renal History Hx Renal Disorders: Yes Renal History Comment: Frequent UTIs - Liver History Hx Hepatic Disorders: No Hepatic History Comment: HX GALLSTONES- CHOLECYSTECTOMY - Neurological & Psychiatric Hx Hx Neurological and Psychiatric Disorders: No Neurological / Psychiatric History Comment: Peripheral Neuropathy due to herniated disk, hx of depression - Cancer History Hx Cancer: Yes Cancer History Comment: SCALP LESION MOHES PROCEDURE - Congenital Disorder History Hx Congenital Disorders: No - GI History Hx Gastrointestinal Disorders: Yes Gastrointestinal History Comment: LYMPHACTIC COLITIS, GERD - Other Health History Other Health History: DJD, DDD, Chronic fatigue syndrome,. RHEUMATIOD ARTHRITIS. OSTEOARTHRITIS. CHRONIC PAIN- NARCOTIC DEPENDENCY - Chronic Pain History Chronic Pain: Yes (BACK, LEGS) - Surgical History Prior Surgeries: Perispinal abscess drain, lumbar fusion, cholecystectomy, Moh' s surgery, knee surgery, Jones's cyst removal, IVC filter placement and retrieval, colectomy ANE Review of Systems - Exercise capacity METS (RN): 3 METS ANE Patient History - Allergies Allergies/Adverse Reactions: Tetracyclines Allergy (Mild, Verified 03/26/17 10:46) Rash ciprofloxacin Allergy (Verified 04/09/17 15:56) levofloxacin Allergy (Verified 04/09/17 15:56) sulfamethoxazole [From Bactrim] Allergy (Verified 04/09/17 15:56) trimethoprim Allergy (Verified 04/09/17 15:56) sulfa drugs Allergy (Mild, Uncoded 03/26/17 10:46) Rash - Home Medications Home Medications: Cholecalciferol Vit D3 [Vitamin D3 (*)] 2,000 units PO DAILY 05/05/15 [Last Taken 03/11/17] Lipase/Protease/Amylase [Creon 24 (*)] 3 cap PO AC 01/02/16 [Last Taken 03/11/17 ] Teriparatide [Forteo] 20 mcg SQ DAILY@18 01/02/16 [Last Taken 03/11/17] Melatonin [Melatonin 3 MG (*)] 2 - 3 tab PO HS 01/17/16 [Last Taken 03/11/17] Budesonide [Budesonide EC] 9 mg PO DAILY 10/06/16 [Last Taken 03/11/17] Estradiol [Estrace Vaginal (*)] 1 gm VAG Q3D 10/06/16 [Last Taken Unknown] Lisinopril [Zestril 20 mg (*)] 20 mg PO DAILY 10/06/16 [Last Taken 03/11/17] Cymbalta 60 MG (*) 60 mg PO DAILY 04/09/17 [Last Taken Unknown] Omeprazole mg PO DAILY 04/09/17 [Last Taken Unknown] - Smoking Hx Smoking Status: Former smoker - Family Anes Hx Family Hx Anesthesia Complications: NO ANE Labs/Vital Signs - Vital Signs Height: 162.56 cm Weight: 97.522 kg ANE Physical Exam - Airway Mallampati Score: Class 3 Mouth exam: poor dentition - Pulmonary Pulmonary: no respiratory distress, clear to auscultation - Cardiovascular Cardiovascular: regular rate and rhythym - ASA Status ASA Status: III
[2017-04-14] MEDS ORDERED: ACETAMINOPHEN 500 MG TAB PO PRN (15:05)
[2017-04-14] MEDS ORDERED: ONDANSETRON 4 MG/2 ML VIAL IVP PRN (15:05)
[2017-04-14] MEDS ORDERED: NALOXONE HCL 0.4 MG/ML INJ IVP PRN (15:05)
[2017-04-14 15:07] VITALS: TEMP 97.7
[2017-04-14 15:51] VITALS: BP 131/99; PULSE 74; RESP 13; O2SAT 93
[2017-04-14] MEDS ORDERED: LIDOCAINE 2% 2 ML INJ ONE (16:29)
[2017-04-14] MEDS ORDERED: PETROLAT,WHT/MIN OIL/SOD CHL 3.5 GM OPHT.OINT ONE (16:29)
[2017-04-14] MEDS ORDERED: HEPARIN 1000 UNIT/1 ML MDV ONE (16:29)
[2017-04-14] MEDS ORDERED: DEXAMETHASONE 10 MG/ML VIAL ONE (16:29)
[2017-04-14] MEDS ORDERED: ONDANSETRON 4 MG/2 ML VIAL ONE (16:29)
== END 2017-04-14 16:18 | disposition home or self-care (01) ==
LOC: FIMAGING 11:40
PROVIDERS: ATTEND Physician Assistant
DX: M51.26 Other intervertebral disc displacement, lumbar region (principal); M48.06 Spinal stenosis, lumbar region; M89.38 Hypertrophy of bone, other site; Z98.890 Other specified postprocedural states
CPT/HCPCS: 72148; J1100; J2250; J2405; J2704

== ENCOUNTER → 2017-07-16 | Outpatient (CLI) | payer OTHER, MEDICAID | LOC: FIMAGING 11:31 | PROVIDERS: ATTEND Internal Medicine | DX: R91.8 Other nonspecific abnormal finding of lung field (principal); R05 Cough; R09.89 Other specified symptoms and signs involving the circulatory and respiratory systems; R50.9 Fever, unspecified | CPT/HCPCS: 71020; G0463 ==

== ENCOUNTER → 2017-10-28 | Outpatient (CLI) | payer OTHER, MEDICAID | LOC: FIMAGING 11:30 | PROVIDERS: ATTEND Internal Medicine Rheumatology | DX: M17.11 Unilateral primary osteoarthritis, right knee (principal); M25.461 Effusion, right knee ==

== ENCOUNTER → 2017-11-30 | Outpatient (CLI) | payer OTHER, MEDICAID | LOC: FIMAGING 13:30 | PROVIDERS: ATTEND Internal Medicine Rheumatology | DX: Z13.820 Encounter for screening for osteoporosis (principal); M81.0 Age-related osteoporosis without current pathological fracture; Z78.0 Asymptomatic menopausal state; Z98.1 Arthrodesis status ==

== ENCOUNTER → 2018-03-18 | Outpatient (CLI) | payer OTHER, MEDICAID | LOC: FIMAGING 11:19 | PROVIDERS: ATTEND Internal Medicine Rheumatology | DX: M05.89 Other rheumatoid arthritis with rheumatoid factor of multiple sites (principal) ==

== ENCOUNTER → 2018-05-27 | Outpatient (CLI) | payer OTHER, MEDICAID | LOC: FIMAGING 10:23 | PROVIDERS: ATTEND Internal Medicine | DX: M79.89 Other specified soft tissue disorders (principal); M81.0 Age-related osteoporosis without current pathological fracture; M21.611 Bunion of right foot ==

== ENCOUNTER → 2018-10-19 | Outpatient (CLI) | payer OTHER, MEDICAID | LOC: FIMAGING 14:39 → EDSTATUS 14:41 | PROVIDERS: ATTEND Internal Medicine | DX: M20.11 Hallux valgus (acquired), right foot (principal); M19.071 Primary osteoarthritis, right ankle and foot; Z87.81 Personal history of (healed) traumatic fracture ==